=== PATIENT | male | born 1970 | race Caucasian/White ===

== ENCOUNTER 2023-09-08 11:53 | Emergency (ER) | payer SELFPAY ==
[2023-09-08 11:54] VITALS: BP 135/99; PULSE 113; RESP 14; TEMP 36.6; O2SAT 98; BMI 26.7
== END 2023-09-08 13:08 | disposition left against medical advice (07) ==
DX: Z53.21 Procedure and treatment not carried out due to patient leaving prior to being seen by health care provider (principal)

== ENCOUNTER 2023-12-18 13:05 | Inpatient (IN) | payer BC, SELFPAY ==
[2023-12-18] VITALS (13 sets, daily range): BP systolic 104–141; BP diastolic 62–94; PULSE 61–76; RESP 16–20; TEMP 36.2–36.8; O2SAT 98–100; BMI 25.6; BMI 26.5
--- NOTE | 2023-12-18 07:35 | PCM.HP.BLA ---
History and Physical Date of Admission: 12/18/23 Date of Service: 12/10/23 MR#: [id number] Acct: [id number] Name: ODALYS DUMONT Rep #: [id number] : 1970 Provider: Dr. 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 Is patient in pain?: No Allergies oxycodone [From Percocet] Adverse Reaction (Verified 12/10/23 08:26) Nausea Medications amlodipine 5 mg tablet 5 mg PO DAILY 11/27/23 [History Confirmed 12/10/23] tramadol 50 mg tablet 50 mg PO Q6H PRN 11/27/23 [History Confirmed 12/10/23] acetaminophen 160 mg/5 mL oral liquid 160 mg PO Q8H PRN 12/03/23 [History Confirmed 12/10/23] amoxicillin 875 mg tablet mg PO 12/10/23 [History Confirmed 12/10/23] PFSH Medical History Dysphagia Elevated BP without diagnosis of hypertension Kidney stones Neck abscess 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 Patient had surgery November 13, 2023 for his tongue. Patient does have a PEG tube in place. Patient also has an abscess to the and will get that pulled tomorrow. Patient was started on amoxicillin x 5 days on Saturday. Discussed with oncology okay to put the port in mid to late next week. ROS General General: Yes weight change; No appetite, fatigue, colon cancer or breast cancer HEENT HEENT: No difficulty swallowing, eye injury, eye surgery, swollen glands or hoarseness Endo Endocrine: No thyroid disease, diabetes mellitus, thyroid cancer, Hair loss, heat intolerance or cold intolerance Skin Skin: No rash or changing moles Musc Musculoskeletal: No back problems, arthritis, rheumatoid arthritis, gout or joint pain Cardio Cardiovascular: Yes high blood pressure; No murmur, pacemaker, heart disease, atrial fibrillation, heart attack, heart stent, palpitations, shortness of breat with exertion or chest pain Psych Psychiatric: No depression, anxiety or hearing voices Resp Respiratory: No shortness of breath, No sleep apnea, No cough, No COPD, No asthma, No emphysema and No wheezing Gastro Gastrointestinal: No abdominal pain, No nausea or vomiting, No diarrhea, No constipation, No blood in stool, No acid reflux, No hemorrhoids, No ulcers, No gallbladder problem and No black,tarry stools Chad Hematologic: No blood thinners, No blood disorders, No bleeding, No anemia and No blood clots Neuro Neurologic: No numbness and No tingling Exam Const General: cooperative, healthy appearing and comfortable Neck Other: Well-healed left neck incision, previous trach site well-healed Chest Other: Bilateral upper chest normal to palpation Resp Effort & Inspection: normal respiratory effort Cardio Rate: regular rate GI Palpation: soft Other: PEG tube in place Skin General: no rashes or lesions noted Neuro General: patient alert, patient awake and patient oriented x3 Extrem Other: Well-healed left forearm incision Psych Affect: normal affect Assessment and Plan Assessment and Plan (1) Encounter for insertion of venous access port: Status: Acute (2) Cancer of anterior two-thirds of tongue, dorsal surface: Status: Acute Comment: 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 Discussed adjuvant chemotherapy and Radiation to decrease recurrence, risks, benefits and side effects. Pt agreed to proceed. Plan Will plan for mid to late next week so patient has time to have his tooth pulled as well as complete his antibiotics to decrease any chance of infection of the port. I have discussed above with the patient- Port-a-Cath placement. Right IJ possible left Patient has been counseled as to the risks/benefits of the procedure. I have explained the risks of the surgery, including but not limited to: infection, bleeding, injury to any blood vessels/nerves, injury to lungs (such as pneumothorax or hemothorax and need for chest tube), not having any access, nonfunctioning of port due to thrombosis, infection of port, etc. the patient understands and agrees to proceed. I have answered all the patient's questions to the patient?s satisfaction and the patient has no further questions. Rashida Hunter M.D. Pager: [phone] [facility] [address] [place] [address], [address] [place] [address] Office: [phone] Coding Level of Care Code Off vis,new,level 3 Diagnoses Encounter for insertion of venous access port Z45.2 Cancer of anterior two-thirds of tongue, dorsal surface C02.0 12/10/23 1007 <Electronically signed by Rashida Hunter MD> Date Rashida Hunter MD
[2023-12-18] MEDS: Lactated Ringers 1,000 ML 15 ML IV (08:08)
[2023-12-18] MEDS: Cefazolin 2 GM in 0.9% Normal Saline (100mL Bag) 100 ML IV (09:55)
[2023-12-18] MEDS: Lidocaine 1% /Epi 1:100 (50ml) 50 ML VIAL (10:00)
[2023-12-18] MEDS: Bupivacaine Mpf 0.5% 30 ML VIAL (10:00)
--- NOTE | 2023-12-18 10:25 | PCM.OPRPT ---
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 Placement of right IJ Port-A-Cath 2. Use of ultrasound 3. Use of fluoroscopy Surgeon: Rashida Hunter Type of Anesthesia: Local MAC Anesthesiologist: Dima No Special Medications: Ancef 2 g IV x 1 Specimen's removed: None Estimated Blood Loss (mL): < 10 cc Description of Procedure: After informed consent was given, the patient was brought to the operating room and placed in the supine position. Appropriate time out protocol was followed. Patient was then given IV conscious sedation for anesthesia. The patient's right upper chest and neck were then prepped with a surgical skin preparation and sterile surgical drapes were placed. After proper landmarks were ascertained, the skin at the upper right chest area was then infiltrated with 1:1 mixture of 1% lidocaine with epinephrine and 0.5% marcaine. A needle trocar was then inserted into the right internal jugular vein with ultrasound guidance-multiple vessels were viewed with u/s and the right IJ was chosen-- and there was good aspiration of venous blood. A wire was then threaded into the needle trocar and this was visualized under fluoroscopy to ensure that the wire was in the superior vena cava. Once this was done, then the needle trocar was removed. A small skin johnna was made with an 11 blade knife at the wire entrance site. The dilator with the introducer sheath attached was then placed over the wire into the right internal jugular vein via the Seldinger technique and this was visualized under fluoroscopy. The dilator and sheath were in proper position as visualized by fluoroscopy. A subcutaneous pocket was then created caudad to the catheter insertion site. A transverse skin incision was made after the skin and subcutaneous tissues were infiltrated with local anesthetic. Blunt dissection was then used to create a space large enough for placement of the subcutaneous port. The catheter was then tunneled into the subcutaneous pocket. The wire and dilator were then removed. The catheter was then threaded into the introducer sheath and was positioned with its tip at the junction of the superior vena cava and the right atrium as visualized under fluoroscopy. The excess catheter was transected. The catheter was then attached to the subcutaneous port using manufacturers guidelines. The catheter was flushed with a heparin saline mixture prior to placement. Hemostasis was carefully controlled with electrocautery. The port was sutured to the subcutaneous fascia using 2-0 Vicryl suture at two sites. The port was then placed in the subcutaneous pocket. The incision were reapproximated with interrupted subdermal 3-0 vicryl sutures. The skin was reapproximated with 3-0 nylon suture in a interrupted fashion. Steristrips were used for reinforcement of the skin closure at IJ insertion site and a sterile opsite dressings were applied. The patient tolerated the procedure well. Grafts/Implants Used: Bard PowerPort isp M.R.I. 6Fr Lot [id number] [id number] Complications none
--- NOTE | 2023-12-18 10:27 | DCINST_ITS ---
Discharge Instructions Procedure Port-A-Cath Diet Discharge Diet: Light diet - advance as tolerated Activity May shower in (days): 5 (Keep port site clean and dry x5 days. Neck incision okay to get wet after 1 day. Okay to lower shower and upper sponge bath. OR okay to taper off port site with a Ziploc bag to shower) Lifting Restrictions: No lifting > 15 pounds for 3 days with the arm on the side of the port Dressing / Incision Call your doctor if your incision/area has: Continuous Slow Oozing, Sudden Increased Bleeding, Increased Pain/ Swelling, Increased Redness, Foul Smelling Discharge and Swelling at the incision site Call your doctor if you observe: Fever of 101 or Higher Change Dressing in: 2 days (2-3 days- port site; ok to remove neck opsite in 1 day) Follow Up Care Please Follow Up With: Rashida Hunter MD When: In 10 days for permanent suture removal?call office for appointment Test Results: Test results from this visit will be discussed in further detail at your follow- up appointment, if applicable. Discharge Plan Admission Attending Provider: Rashida Hunter Primary Care Provider: Lata Bennett Discharge Orders/Prescriptions Prescriptions: Continued amlodipine 5 mg tablet 5 mg PO DAILY tramadol 50 mg tablet 50 mg PO Q6H PRN (Reason: pain) acetaminophen 160 mg/5 mL liquid 160 mg PO Q8H PRN (Reason: pain) lidocaine-prilocaine 2.5-2.5 % cream 1 applic topical ONCE PRN (Reason: port access) 30 Days Qty: 30 2RF dexamethasone 4 mg tablet 8 mg PO .COMPLEX Qty: 40 0RF Rx Instructions: 8 mg orally daily on days 2-4 of chemotherapy cycle ONLY ondansetron 8 mg tablet,disintegrating 8 mg PO Q8H PRN (Reason: nausea and vomiting) Qty: 30 2RF prochlorperazine maleate 10 mg tablet 10 mg PO Q6H PRN (Reason: nausea and vomiting) Qty: 30 2RF amoxicillin 875 mg tablet 875 mg PO BID Patient Comments: take 1 tablet by mouth twice a day Referrals / Follow Up: Lata Bennett MD [Primary Care Provider] - Disposition Disposition (needs filled in before D/C Order can be placed): Home, Self Care
--- NOTE | 2023-12-18 10:40 | RAD_ITS ---
INDICATION: port -- pacu EXAMINATION/TECHNIQUE: X-RAY - XR Chest 1 View COMPARISON: No relevant prior comparison study available FINDINGS: LINES/DEVICES: Right-sided Port-A-Cath with its tip in the distal superior vena cava. LUNGS: No consolidation, edema or effusion. No pneumothorax. MEDIASTINUM AND CARDIOVASCULAR STRUCTURES: Cardiac silhouette not enlarged. Central airways and mediastinal contour are unremarkable. BONES AND SOFT TISSUES: Unremarkable. RAD/Chest 1 View (Portable) IMPRESSION: No radiographic evidence of acute cardiopulmonary disease. Electronically Signed: Sonu Salcedo MD at 11:01 EST ,
--- NOTE | 2023-12-18 11:55 | RAD_ITS ---
INDICATION: port/right PTX -- pacu EXAMINATION/TECHNIQUE: X-RAY - XR Chest 1 View COMPARISON: Prior study dated: 12/18/2023, 10:36 AM FINDINGS: LINES/DEVICES: Right-sided Port-A-Cath in stable position. LUNGS: Right apical pneumothorax which in retrospect appears to be increased in size since previous exam appears to measure about 15%. MEDIASTINUM AND CARDIOVASCULAR STRUCTURES: Cardiac silhouette not enlarged. Central airways and mediastinal contour are unremarkable. BONES AND SOFT TISSUES: Unremarkable. RAD/Chest 1 View (Portable) IMPRESSION: Right apical pneumothorax slightly larger than the previous exam. Electronically Signed: Sonu Salcedo MD at 12:09 EST ,
[2023-12-18] MEDS: Morphine 2 MG/ML Syringe IV ×2 (12:59→22:02)
--- NOTE | 2023-12-18 13:25 | RAD_ITS ---
INDICATION: chest tube placement #1 EXAMINATION/TECHNIQUE: X-RAY - XR Chest 1 View COMPARISON: Previous of the same date done earlier. FINDINGS: LINES/DEVICES: Right-sided Port-A-Cath in stable position. New right chest tube in the right lower chest. LUNGS: Right apical pneumothorax decreased since previous exam. Mild atelectatic changes in the right lower lung. No evidence of pleural effusions. MEDIASTINUM AND CARDIOVASCULAR STRUCTURES: Cardiac silhouette not enlarged. Central airways and mediastinal contour are unremarkable. BONES AND SOFT TISSUES: Unremarkable. RAD/Chest 1 View (Portable) IMPRESSION: Right chest tube in the right lower chest. Decreased right apical pneumothorax. Electronically Signed: Sonu Salcedo MD at 13:56 EST ,
--- NOTE | 2023-12-18 13:30 | RAD_ITS ---
INDICATION: chest tube placement #2 EXAMINATION/TECHNIQUE: X-RAY - XR Chest 1 View COMPARISON: Previous of the same date done earlier FINDINGS: LINES/DEVICES: Right-sided Port-A-Cath in stable position. New right chest tube with the tip in the right lower chest is suggested more cephalad. The previously inserted chest tube has been removed. LUNGS: Right apical pneumothorax unchanged or slightly larger than the previous exam. MEDIASTINUM AND CARDIOVASCULAR STRUCTURES: Cardiac silhouette not enlarged. Central airways and mediastinal contour are unremarkable. BONES AND SOFT TISSUES: Unremarkable. RAD/Chest 1 View (Portable) IMPRESSION: New right chest tube. Right apical pneumothorax unchanged or slightly larger than the previous exam. Electronically Signed: Sonu Salcedo MD at 13:58 EST ,
--- NOTE | 2023-12-18 13:35 | RAD_ITS ---
INDICATION: CHEST TUBE PLACEMENT #3 EXAMINATION/TECHNIQUE: X-RAY - XR Chest 1 View COMPARISON: Previous of the same date done earlier. FINDINGS: LINES/DEVICES: Right-sided chest tube is now in the lateral aspect of the right midchest appears to be new since previous exam. Right-sided Port-A-Cath in stable position. LUNGS: Markedly decreased and almost resolved right apical pneumothorax. MEDIASTINUM AND CARDIOVASCULAR STRUCTURES: Cardiac silhouette not enlarged. Central airways and mediastinal contour are unremarkable. BONES AND SOFT TISSUES: Unremarkable. RAD/Chest 1 View (Portable) IMPRESSION: Right chest tube in place as described above. Markedly decreased and almost resolved right apical pneumothorax. Electronically Signed: Sonu Salcedo MD at 13:59 EST ,
--- NOTE | 2023-12-18 13:37 | PCM.OPRPT ---
Report of Operation Date of Procedure: 12/18/23 Pre-Operative Diagnosis: right PTX s/p port placement Post-Operative Diagnosis: same Surgery/Procedure Performed:: placement of right percutaneous chest tube Surgeon: Rashida Hunter Type of Anesthesia: Local Estimated Blood Loss (mL): < 10 cc Description of Procedure: Indications: 53-year-old male status post placement of right IJ Port-A-Cath postop chest x-ray showed a right pneumothorax. Discussed the procedure of percutaneous right chest tube with the patient. All questions were answered and consent obtained. Description of procedure. Patient was supine in the bed with his right arm overhead. The right anterior axillary line was prepped draped usual sterile fashion with chlorhexidine. Insertion site was planned at inferior mammary fold. This area was numbed with lidocaine 1% a total of 12 cc. A pneumo dart 8 Luxembourger chest tube kit was used. The catheter needle replaced above the rib air was aspirated and the catheter was advanced over the needle. This was secured with the 3-0 silk suture and attached to a Pleur-evac did have some bubbles in the Pleur-evac chamber. Checked chest x-ray which showed the catheter was more horizontal and there is still pneumothorax. Additional pneumo dart kit 8 Luxembourger chest tube was obtained and attempted to place through the same entry site however again tube was more horizontal still with a pneumothorax. A Glidewire was used to help to direct superiorly visualized with x-rays. Once the guidewire was superior the catheter was slid over the top and placed towards the apex. Pneumothorax appeared to be resolved on final chest x-ray. Patient was put on -22 the Pleur-evac. Patient tolerated procedure well. Complications none
[2023-12-18] MEDS: traMADol 50 MG Tablet PO (17:04)
[2023-12-18] MEDS: Ensure Plus High Protein 120 ML LIQUID PO (21:58)
[2023-12-19] VITALS (10 sets, daily range): BP systolic 111–131; BP diastolic 73–91; PULSE 65–83; RESP 16; TEMP 36.4–36.8; O2SAT 96–99
[2023-12-19] MEDS: traMADol 50 MG Tablet PO ×3 (02:08→18:16)
--- NOTE | 2023-12-19 05:55 | RAD_ITS ---
INDICATION: right ptx- s/p CT -- portable EXAMINATION: Frontal view of the chest COMPARISON: Chest x-ray December 18, 2023. FINDINGS: Frontal view of the chest was obtained. The right pneumothorax has increased in size measuring 2.4 cm in width, previously 1.4 cm. The right chest tube is unchanged in position with the tip projecting over the lateral aspect of the right upper mid hemithorax. The tip of the Port-A-Cath projects over the right atrium as before. The cardiac silhouette is not enlarged. No confluent airspace disease. RAD/Chest 1 View IMPRESSION: The right pneumothorax has increased in size since the previous day. Chest tube is unchanged in position. Electronically Signed: Bigg Hernandez MD at 5:51 EST ,
--- NOTE | 2023-12-19 07:52 | RAD_ITS ---
ACR Level 3 findings have been noted. An addendum which confirms receipt of the report will follow. HISTORY: Right pneumothorax. TECHNIQUE: XR Chest 1 View. COMPARISON: 05:13. FINDINGS: LINES/TUBES: Small caliber right chest tube slightly repositioned. Right chest wall port again seen. CARDIOMEDIASTINAL BORDERS: Stable. LUNGS: Mild linear atelectasis in the right mid to lower lung. PLEURA: 3.7 cm thick right apical pneumothorax with a mild basilar component. Previously measured 2.8 cm. RAD/Chest 1 View (Portable) IMPRESSION: Increased size of right pneumothorax. Electronically Signed: Violet Hays MD at 8:36 EST ,
--- NOTE | 2023-12-19 08:06 | PCM.PN.SRG ---
Subjective Subjective Chest x-ray still has a pneumothorax with tube in place Objective Data Objective Data Vital Signs: Vital Signs Temp Pulse Resp BP Pulse Ox O2 Del Method O2 Flow Rate 97.7 F L 65 16 122/86 H 97 Nasal Cannula 2 12/19/23 04:07 12/19/23 04:07 12/19/23 04:07 12/19/23 04:07 12/19/23 04:07 12/19/23 04:10 12/19/23 04:07 Oxygen Flow Rate (L/min) 2 Oxygen Delivery Method Nasal Cannula Weight: 184 lb 15.485 oz Body Mass Index (BMI) 26.5 Intake & Output: Intake and Output for Last 24 Hours 12/17/23 12/18/23 12/19/23 23:59 23:59 23:59 Intake Total 770 / 770 Output Total 950 / 1800 1150 / 1150 Balance -180 / -1030 -1150 / -1150 Radiography Diagnostic Testing: Radiology Impression Chest X-Ray 12/18/23 10:40 IMPRESSION: No radiographic evidence of acute cardiopulmonary disease. Electronically Signed: Sonu Salcedo MD at 11:01 EST , Chest X-Ray 12/18/23 11:55 IMPRESSION: Right apical pneumothorax slightly larger than the previous exam. Electronically Signed: Sonu Salcedo MD at 12:09 EST , Chest X-Ray 12/18/23 13:25 IMPRESSION: Right chest tube in the right lower chest. Decreased right apical pneumothorax. Electronically Signed: Sonu Salcedo MD at 13:56 EST , Chest X-Ray 12/18/23 13:30 IMPRESSION: New right chest tube. Right apical pneumothorax unchanged or slightly larger than the previous exam. Electronically Signed: Sonu Salcedo MD at 13:58 EST , Chest X-Ray 12/18/23 13:35 IMPRESSION: Right chest tube in place as described above. Markedly decreased and almost resolved right apical pneumothorax. Electronically Signed: Sonu Salcedo MD at 13:59 EST , Chest X-Ray 12/19/23 05:55 IMPRESSION: The right pneumothorax has increased in size since the previous day. Chest tube is unchanged in position. Electronically Signed: Bigg Hernandez MD at 5:51 EST , Physical Exam Const oriented x3 and no apparent distress Resp normal respiratory effort Cardio regular rate GI soft to palpation and non-tender Assessment & Plan Assessment/Plan (1) Pneumothorax, right: (2) Encounter for insertion of venous access port: (3) Post-operative complication: PLAN: Plan Will recheck CXR-- Pt still has airleak may need larger CT unsure why initially no bubbles until placed on -40 suction with tube in good position. Reviewed CXR w pt and discussed above. Chest x-ray still has a decent pneumo even after messing with the smaller tube. Will place larger chest tube. Patient had no questions this time.
[2023-12-19] MEDS: Morphine 4 MG/ML Syringe IV (08:50)
--- NOTE | 2023-12-19 09:23 | RAD_ITS ---
HISTORY: POST CHEST TUBE. TECHNIQUE: XR Chest 1 View. COMPARISON: Prior day. FINDINGS: LINES/TUBES: Small caliber right lateral chest tube removed. Large bore chest tube placed more medially with mild chest wall emphysema now seen. Right chest wall port with catheter tip at the level of the superior cavoatrial junction. CARDIOMEDIASTINAL BORDERS: Stable. LUNGS: Very mild linear atelectasis of the right mid to lower lung. PLEURA: Right apical pneumothorax measures 8 mm in thickness. RAD/Chest 1 View IMPRESSION: Very mild right apical pneumothorax, decreased in size status post chest tube replacement. Electronically Signed: Violet Hays MD at 9:38 EST ,
--- NOTE | 2023-12-19 09:35 | OP.PCM_ITS ---
Report of Operation Date of Procedure: 12/19/23 Pre-Operative Diagnosis: Right pneumothorax, status post port placement Post-Operative Diagnosis: Same Surgery/Procedure Performed:: Placement of 20 Panamanian right chest tube under fluoroscopy Surgeon: Rashida Hunter Type of Anesthesia: Local and Supplemental Special Medications: Morphine 2 mg IV x 1 Estimated Blood Loss (mL): < 10 cc Description of Procedure: Patient was supine on the fluoroscopy table with the right hand overhead. Areas prepped draped usual sterile fashion with chlorhexidine. The previous 8 Panamanian chest tube was removed. Local anesthesia of 1% lidocaine was used and infiltrated at the site and planned track total of 15 cc. 15 blade scalpel was used to make the incision. Tonsil was used to make the tract just over the rib. The 20 Panamanian chest tube was placed between the rib space and directed superiorly. Fluoroscopy aided in getting the tip at the apex. This was sutured and placed with 0 silk suture and there is also a vertical horizontal mattress suture at the exit site placed. Vaseline gauze was placed. This was hooked to the Pleur-evac and we did get a leak in the container. X-ray did show good placement of tube with lung expanded --patient does have intermittent airleak on -20 to a Pleur-evac.. Patient tolerated procedure well was taken back to his room in stable condition. Complications none
[2023-12-19] MEDS: Ensure Plus High Protein 120 ML LIQUID PO (09:51)
[2023-12-19] MEDS: amLODIPine 5 MG Tablet PO (09:51)
--- NOTE | 2023-12-19 12:50 | CASEMGMT ---
NAMITA DAVID Assessment Face to Face with patient for initial transition planning/care coordination assessment. NAMITA DAVID introduced self and role at [facility], pt voices understanding. Pt is A&Ox4 and is resting comfortably in bed and is calm. Care providers, pharmacy, and demographics verified. Admitting dx: Rt PTX S/P PORT PCP: Lata Bennett Specialists: Dr. Judah DOUGLAS Preferred Pharmacy: [facility] Insurance: ANTHEM Prescription Benefit: Yes LNOK: Grace Minor (W) Living Arrangements: Pt lives with his and 24 y/o son in a single story home with 3 steps to enter with a HR and no issues entering. ADLs/IADLs: Ind Transportation: Pt drives, pt drives and will be the pt transportation home DME: [employer] at home but does not use. [employer]. Pt denies all other DME uses or needs. HHC/SNF: Denies SNF history. Pt states that he is active with Palliative care but could not recall the name of the agency. Pt states that he is scheduled to be seen tomorrow at noon by Palliative but states that he will most likely not be able to be seen at that time d/t being at [facility]. Pt?s goal: Home Plan: Pt 6-Click is 20. Pt denies OP therapy or HHC needs at this time. Pt states that he wishes to DC home once MR and resume Palliative care. Pt denies further needs at this time. CM to follow for safe DC home. Nathen Heard RN, CM
[2023-12-19] MEDS: Morphine 2 MG/ML Syringe IV (15:48)
[2023-12-19] MEDS: Pivot 1.5 Cal 1,000 ML BOTTLE 237 ML GT ×2 (18:17→21:22)
[2023-12-20] VITALS (10 sets, daily range): BP systolic 119–136; BP diastolic 79–91; PULSE 79–98; RESP 18; TEMP 36.8–37.2; O2SAT 96–98
[2023-12-20] MEDS: traMADol 50 MG Tablet PO ×2 (03:50→07:39)
--- NOTE | 2023-12-20 06:44 | RAD_ITS ---
STUDY: X-RAY CHEST REASON FOR EXAM: Male, 53 years old patient presents for evaluation of chest tube. TECHNIQUE: Single AP portable view of the chest. COMPARISON: December 19, 2023. FINDINGS: Right-sided Mediport catheter is present in the tip of the catheter is in the right atrium. Right-sided thoracostomy tube is present with the tip in the right lung apex. The lungs are clear. There is a large right-sided pneumothorax new since the previous study. Normal size heart. Normal mediastinum and sina. Normal visualized pulmonary arteries. Normal visualized aortic arch and descending thoracic aorta. Normal visualized thoracic spine. Normal visualized ribs, clavicles, and shoulders. There is no demonstrated abnormality of the visualized soft tissue structures of the upper abdomen. RAD/Chest 1 View (Portable) IMPRESSION: New right-sided pneumothorax involves at least 50% of the lung. Electronically Signed: Maggie Heard MD at 7:42 EST ,
[2023-12-20] MEDS: Morphine 2 MG/ML Syringe IV ×2 (07:18→07:47)
--- NOTE | 2023-12-20 07:25 | RAD_ITS ---
INDICATION: chest tube -- portable EXAMINATION/TECHNIQUE: X-RAY - XR Chest 1 View COMPARISON: December 20, 2023 at 6:38 AM FINDINGS: LINES/DEVICES: There is a right chest tube in place with its tip projecting over the medial right upper/midline. There is a right-sided central venous catheter in place tip within the expected region of the cavoatrial junction. LUNGS: There is significant interval decrease in size of the right pneumothorax. There is a residual tiny right apical pneumothorax. MEDIASTINUM AND CARDIOVASCULAR STRUCTURES: Cardiac silhouette not enlarged. Central airways and mediastinal contour are unremarkable. BONES AND SOFT TISSUES: Unremarkable. RAD/Chest 1 View (Portable) IMPRESSION: Significant interval decrease in size of right pneumothorax with a residual tiny apical pneumothorax. Electronically Signed: Noa Balbuena MD at 8:13 EST ,
--- NOTE | 2023-12-20 07:27 | PN.SURG_ITS ---
Subjective Subjective Patient section x-ray shows a large pneumothorax. When evaluated tube it was kinked outside the body-- this was unkinked and a large amount of air came out patient also does have a small leak. Tube was secured to prevent kinking. Objective Data Objective Data Vital Signs: Vital Signs Temp Pulse Resp BP Pulse Ox O2 Del Method O2 Flow Rate 98.4 F 79 18 128/90 H 97 Nasal Cannula 2 12/20/23 03:51 12/20/23 03:51 12/20/23 03:51 12/20/23 03:51 12/20/23 03:51 12/20/23 03:51 12/20/23 03:51 Oxygen Flow Rate (L/min) 2 Oxygen Delivery Method Nasal Cannula Weight: 184 lb 15.485 oz Body Mass Index (BMI) 26.5 Intake & Output: Intake and Output for Last 24 Hours 12/18/23 12/19/23 12/20/23 23:59 23:59 23:59 Intake Total 770 / 770 1166.75 / 1166.75 Output Total 950 / 1800 2385 / 2385 151 / 151 Balance -180 / -1030 -1218.25 / -1218.25 -151 / -151 Radiography Diagnostic Testing: Radiology Impression Chest X-Ray 12/19/23 07:52 IMPRESSION: Increased size of right pneumothorax. Electronically Signed: Violet Hays MD at 8:36 EST , ADDENDUM: 12/19/23 0847 IMPRESSION: Increased size of right pneumothorax. N.B. : Viviana Miller RN, confirmed on 12/19/2023 08:40:12 (ET) that the healthcare facility has received the radiology report. Electronically Signed: Violet Hays MD at 8:36 EST , Chest X-Ray 12/19/23 09:23 IMPRESSION: Very mild right apical pneumothorax, decreased in size status post chest tube replacement. Electronically Signed: Violet Hays MD at 9:38 EST , Physical Exam Narrative Right chest tube in place initially was kinked the 20 Romanian chest tube this was unkinked and secured with tape. Const oriented x3 and no apparent distress Resp normal respiratory effort Cardio regular rate GI soft to palpation and non-tender Assessment & Plan Assessment/Plan (1) Pneumothorax, right: (2) Encounter for insertion of venous access port: (3) Post-operative complication: PLAN: Plan Will recheck CXR--as this morning's x-ray showed a large pneumo as the CT tube was kinked outside the body. Tube was resecured to prevent any rekinking. Patient does have a leak present intermittently. Rashida Hunter M.D. Pager: [phone] [facility] [place] [facility] [address] [place] [address], [address] [place] [address] Office: [phone]
[2023-12-20] MEDS: HYDROmorphone 0.5 MG/0.5 ML SYRINGE IV (09:52)
[2023-12-20] MEDS: amLODIPine 5 MG Tablet PO (11:03)
--- NOTE | 2023-12-20 11:09 | CASEMGMT ---
Social Work As per admitting RN, pt does not have LW/POA, additional information provided. FANNY Frazier
[2023-12-20] MEDS: Ketorolac 15 MG/ML Vial IV ×2 (11:37→18:03)
[2023-12-20] MEDS: oxyCODONE 5 MG Tablet PO (14:39)
[2023-12-21] VITALS (8 sets, daily range): BP systolic 124–132; BP diastolic 47–90; PULSE 97–109; RESP 16–18; TEMP 36.3–37.1; O2SAT 94–96
[2023-12-21] MEDS: Ketorolac 15 MG/ML Vial IV ×4 (02:56→22:21)
--- NOTE | 2023-12-21 05:55 | RAD_ITS ---
INDICATION: chest tube -- portable EXAMINATION/TECHNIQUE: X-RAY - XR Chest 1 View COMPARISON: 12/20/2023 at 7:29 AM. FINDINGS: LINES/DEVICES: Right apical chest tube is stable. Stable right chest port. LUNGS: Small right apical pneumothorax, increased in size as compared to the prior exam. No evidence of a pleural effusion. Left basilar atelectasis versus infiltrate. MEDIASTINUM AND CARDIOVASCULAR STRUCTURES: Cardiac silhouette is normal in size and contour. Mediastinum is unremarkable. BONES AND SOFT TISSUES: No acute abnormality. RAD/Chest 1 View (Portable) IMPRESSION: 1. Small right apical pneumothorax, increased in size as compared to 12/20/2023 at 7:29 AM. 2. Left basilar atelectasis versus infiltrate. Electronically Signed: Burton Smith DO at 7:09 EST ,
--- NOTE | 2023-12-21 08:00 | RAD_ITS ---
INDICATION: right chest tube -- portable 2 view EXAMINATION/TECHNIQUE: X-RAY - XR Chest 2 Views COMPARISON: Prior study dated: 12/21/2023 FINDINGS: LINES/DEVICES: Right-sided Port-A-Cath and right chest tube in stable position. LUNGS: Small right apical pneumothorax slightly increased in size since previous exam. Mild atelectatic changes in the lower lungs. No evidence of pleural effusions. MEDIASTINUM AND CARDIOVASCULAR STRUCTURES: Cardiac silhouette not enlarged. Central airways and mediastinal contour are unremarkable. BONES AND SOFT TISSUES: Unremarkable. RAD/Chest PA and Lateral IMPRESSION: Slightly increased right apical pneumothorax. Electronically Signed: Sonu Salcedo MD at 8:33 EST ,
[2023-12-21] MEDS: oxyCODONE 5 MG Tablet PO ×4 (08:19→20:16)
[2023-12-21] MEDS: amLODIPine 5 MG Tablet PO (08:20)
[2023-12-21] MEDS: 0.9% Saline Lock 10 ML Syringe IV ×4 (08:20→22:20)
[2023-12-21] MEDS: Morphine 2 MG/ML Syringe IV (08:30)
--- NOTE | 2023-12-21 10:00 | RAD_ITS ---
INDICATION: CHEST TUBE PLACEMENT EXAMINATION/TECHNIQUE: X-RAY - XR Chest 2 Views COMPARISON: Previous of the same date done earlier. FINDINGS: LINES/DEVICES: Right-sided chest tube has been adjusted with the tip now in the right upper chest. Right-sided Port-A-Cath in stable position. LUNGS: Right apical pneumothorax almost resolved. Right subcutaneous emphysema. No evidence of pleural effusions. MEDIASTINUM AND CARDIOVASCULAR STRUCTURES: Cardiac silhouette not enlarged. Central airways and mediastinal contour are unremarkable. BONES AND SOFT TISSUES: Unremarkable. RAD/Chest PA and Lateral IMPRESSION: 1. Status post adjustment of right chest tube. 2. Almost resolved right apical pneumothorax. Electronically Signed: Sonu Salcedo MD at 11:53 EST ,
--- NOTE | 2023-12-21 10:08 | PCM.PN.SRG ---
Subjective Subjective Patient still pneumothorax on chest x-ray this morning. Tube is not although at the apex still has occasional air leak. Did get AP and lateral after changing up to -40 no improvement in the pneumo chest tube appears to be anterior. Objective Data Objective Data Vital Signs: Vital Signs Temp Pulse Resp BP Pulse Ox O2 Del Method O2 Flow Rate 97.7 F L 97 16 128/90 H 95 Nasal Cannula 2 12/21/23 08:08 12/21/23 08:08 12/21/23 08:08 12/21/23 08:08 12/21/23 08:08 12/21/23 08:20 12/21/23 08:20 Oxygen Flow Rate (L/min) 2 Oxygen Delivery Method Nasal Cannula Weight: 184 lb 15.485 oz Body Mass Index (BMI) 26.5 Intake & Output: Intake and Output for Last 24 Hours 12/19/23 12/20/23 12/21/23 23:59 23:59 23:59 Intake Total 1166.75 / 1166.75 1250 / 1250 Output Total 2385 / 2385 1480 / 1480 807 / 807 Balance -1218.25 / -1218.25 -230 / -230 -807 / -807 Radiography Diagnostic Testing: Radiology Impression Chest X-Ray 12/21/23 05:55 IMPRESSION: 1. Small right apical pneumothorax, increased in size as compared to 12/20/2023 at 7:29 AM. 2. Left basilar atelectasis versus infiltrate. Electronically Signed: Burton Smith DO at 7:09 EST , Chest X-Ray 12/21/23 08:00 IMPRESSION: Slightly increased right apical pneumothorax. Electronically Signed: Sonu Salcedo MD at 8:33 EST , Physical Exam Narrative Right chest tube in place, positive leak in canister Const oriented x3 and no apparent distress Resp normal respiratory effort Cardio regular rate GI soft to palpation and non-tender Assessment & Plan Assessment/Plan (1) Pneumothorax, right: (2) Encounter for insertion of venous access port: (3) Post-operative complication: PLAN: Plan Patient's x-ray still has pneumothorax after trying to turn to -40 no change we will plan to replace with a larger tube and fluoroscopy and plan to get placed at the apex. Discussed with patient and he was agreeable to plan. Rashida Hunter M.D. Pager: [phone] [facility] [address] [place] [address], [address] [place] [address] Office: [phone]
--- NOTE | 2023-12-21 10:10 | OP.PCM_ITS ---
Report of Operation Date of Procedure: 12/21/23 Pre-Operative Diagnosis: Right pneumothorax status post port Post-Operative Diagnosis: Same Surgery/Procedure Performed:: Exchange of right 20 [place] chest tube for 28 [place] chest tube Surgeon: Rashida Hunter Type of Anesthesia: Local and Supplemental Special Medications: 2 mg morphine IV x 1 Description of Procedure: Informed consent was obtained. Patient was supine on the fluoroscopy table. Site was prepped draped usual sterile fashion with Betadine. The previous 20 [place] chest tube was removed. Local anesthesia of 1% lidocaine total of 30 cc was infiltrated in the subcutaneous and above and below the planned entry site of the rib. 28 [place] chest tube was directed posterior and superior however under fluoroscopy this did not easily go even though there is space between the lung and the chest wall. After more adjustment of the the chest tube I was able to get the chest tube to go easily to the apex on the lateral checks x-ray-- chest tube was anteriorly to get to the apex. Chest tube was secured in place with 0 silk suture in a vertical horizontal mattress suture was also placed at the incision. Vaseline gauze placed around the tube. Drain sponges placed around the tube and this was secured with tape. This was hooked to the Pleur- evac which did have continuous bubbles initially does still have a slow leak present. Repeat chest x-ray showed tube is at the apex no obvious pneumo seen. Patient tolerated procedure well. Complications none
[2023-12-21] MEDS: Pivot 1.5 Cal 1,000 ML BOTTLE 237 ML GT ×4 (10:15→22:07)
[2023-12-21] MEDS: Senna Tablet 1 TABLET PO (10:58)
[2023-12-22] VITALS (7 sets, daily range): BP systolic 124–135; BP diastolic 67–82; PULSE 84–94; RESP 16–18; TEMP 36.4–37.2; O2SAT 94–98
--- NOTE | 2023-12-22 07:25 | RAD_ITS ---
HISTORY: chest tube. TECHNIQUE: XR Chest 1 View. COMPARISON: Prior day. FINDINGS: LINES/TUBES: Right apical chest tube and right chest wall port again seen. CARDIOMEDIASTINAL BORDERS: Stable. LUNGS: Improved aeration of the right upper and and bilateral lower lungs with mildly decreased atelectasis. PLEURA: Trace right apical pneumothorax further decrease in size. Decreased chest wall subcutaneous emphysema. RAD/Chest 1 View (Portable) IMPRESSION: Decreased trace right apical pneumothorax. Improved aeration of the lungs. Electronically Signed: Violet Hays MD at 8:05 EDT ,
[2023-12-22] MEDS: amLODIPine 5 MG Tablet PO (08:34)
[2023-12-22] MEDS: Pivot 1.5 Cal 1,000 ML BOTTLE 237 ML GT ×4 (08:34→22:44)
--- NOTE | 2023-12-22 08:53 | PCM.PN.SRG ---
Subjective Subjective Patient's chest x-ray shows lungs are expanded with chest tube at the apex, patient has minimal leak?improved Objective Data Objective Data Vital Signs: Vital Signs Temp Pulse Resp BP Pulse Ox O2 Del Method O2 Flow Rate 98.7 F 92 16 134/81 H 97 Nasal Cannula 2 12/22/23 08:32 12/22/23 08:32 12/22/23 08:32 12/22/23 08:32 12/22/23 08:32 12/22/23 08:32 12/22/23 08:32 Oxygen Flow Rate (L/min) 2 Oxygen Delivery Method Nasal Cannula Weight: 184 lb 15.485 oz Body Mass Index (BMI) 26.5 Intake & Output: Intake and Output for Last 24 Hours 12/20/23 12/21/23 12/23/23 23:59 23:59 00:59 Intake Total 1250 / 1250 860 / 860 200 / 200 Output Total 1480 / 1480 1222 / 1222 217 / 217 Balance -230 / -230 -362 / -362 -17 / -17 Radiography Diagnostic Testing: Radiology Impression Chest X-Ray 12/21/23 08:00 IMPRESSION: Slightly increased right apical pneumothorax. Electronically Signed: Sonu Salcedo MD at 8:33 EST , Chest X-Ray 12/21/23 10:00 IMPRESSION: 1. Status post adjustment of right chest tube. 2. Almost resolved right apical pneumothorax. Electronically Signed: Sonu Salcedo MD at 11:53 EST , Chest X-Ray 12/22/23 07:25 IMPRESSION: Decreased trace right apical pneumothorax. Improved aeration of the lungs. Electronically Signed: Violet Hays MD at 8:05 EDT , Physical Exam Narrative Right chest tube in place, minimal leak improved Const oriented x3 and no apparent distress Resp normal respiratory effort Cardio regular rate GI soft to palpation and non-tender Assessment & Plan Assessment/Plan (1) Pneumothorax, right: (2) Encounter for insertion of venous access port: (3) Post-operative complication: PLAN: Plan Patient's chest x-ray shows lung still reexpanded tubes in good position. Leak has decreased we will continue to -20 suction today. If no evidence of leak tomorrow we will plan to go to waterseal. Rashida Hunter M.D. Pager: [phone] [facility] [address] [place] [address], [facility], [address] [place] [address] Office: [phone]
[2023-12-22] MEDS: Ketorolac 15 MG/ML Vial IV (08:57)
[2023-12-22] MEDS: 0.9% Saline Lock 10 ML Syringe IV (08:58)
[2023-12-22] MEDS: Ibuprofen 400 MG Tablet PO ×2 (13:11→18:35)
[2023-12-22] MEDS: oxyCODONE 5 MG Tablet PO ×2 (14:56→19:44)
[2023-12-23 04:32] VITALS: BP 130/89; PULSE 89; RESP 18; TEMP 36.4; O2SAT 98
--- NOTE | 2023-12-23 05:45 | RAD_ITS ---
EXAM: XR CHEST, 1 VIEW CLINICAL INDICATION: chest tube -- portable TECHNIQUE: Frontal view of the chest. COMPARISON: 12/22/2023. FINDINGS: LUNGS AND PLEURAL SPACES: Unremarkable. No effusion. No significant pneumothorax. HEART: Unremarkable. Cardiac silhouette not enlarged. MEDIASTINUM: Central airways and mediastinal contour are unremarkable. BONES/JOINTS: Unremarkable. No acute fracture. SOFT TISSUES: Unremarkable. TUBES, LINES AND DEVICES: No change the right-sided chest tube. No change right-sided central line. RAD/Chest 1 View (Portable) IMPRESSION: 1. No change the right-sided chest tube. 2. No significant pneumothorax. Electronically Signed: Asad Cordero MD at 6:18 EDT ,
[2023-12-23 07:57] VITALS: BP 114/70; PULSE 87; RESP 18; TEMP 37.1; O2SAT 95
[2023-12-23] MEDS: oxyCODONE 5 MG Tablet PO ×3 (08:04→21:18)
[2023-12-23] MEDS: amLODIPine 5 MG Tablet PO (08:04)
[2023-12-23] MEDS: Pivot 1.5 Cal 1,000 ML BOTTLE 237 ML GT ×4 (08:05→21:05)
--- NOTE | 2023-12-23 08:05 | PCM.PN.SRG ---
Subjective Subjective Patient is a 53 y/o M I am following for right pneumothorax. He denies shortness of breath and chest pressure. Objective Data Objective Data Vital Signs: Vital Signs Temp Pulse Resp BP Pulse Ox O2 Del Method O2 Flow Rate 98.8 F 87 18 114/70 95 Room Air 2 12/23/23 07:57 12/23/23 07:57 12/23/23 07:57 12/23/23 07:57 12/23/23 07:57 12/23/23 07:57 12/23/23 04:32 Oxygen Flow Rate (L/min) 2 Oxygen Delivery Method Room Air Weight: 184 lb 15.485 oz Body Mass Index (BMI) 26.5 Intake & Output: Intake and Output for Last 24 Hours 12/21/23 12/22/23 12/23/23 22:59 23:59 23:59 Intake Total 420 / 420 Output Total 808 / 808 Balance -388 / -388 Radiography Diagnostic Testing: Radiology Impression Chest X-Ray 12/22/23 07:25 IMPRESSION: Decreased trace right apical pneumothorax. Improved aeration of the lungs. Electronically Signed: Violet Hays MD at 8:05 EDT , Chest X-Ray 12/23/23 05:45 IMPRESSION: 1. No change the right-sided chest tube. 2. No significant pneumothorax. Electronically Signed: Asad Cordero MD at 6:18 EDT , Physical Exam Resp normal respiratory effort and clear to auscultation bilaterally Assessment & Plan Assessment/Plan (1) Post-operative complication: (2) Pneumothorax, right: PLAN: Plan I am following this patient in conjunction with Dr. Hunter. CXR this morning demonstrated no significant pneumothorax and no change right-sided chest tube Plan to place patient to water-seal. Recheck CXR later today around 2:00pm. We will continue to monitor this patient Charges/Coding Visit Charges Inpatient E&M: 30873 Subs Hosp L1 (post-op)
--- NOTE | 2023-12-23 08:09 | NURSING ---
CT to water seal at this time per MD.
[2023-12-23 08:26] VITALS: O2SAT 96
--- NOTE | 2023-12-23 11:36 | WOUNDNOTE ---
wound photo: left inner wrist/forearm
--- NOTE | 2023-12-23 13:55 | RAD_ITS ---
STUDY: X-RAY CHEST REASON FOR EXAM: Male, 53 years old. right pneumothorax -- PORTABLE TECHNIQUE: Single AP portable view of the chest. COMPARISON: December 23, 2023 at 5:44 AM FINDINGS: 1. Stable right upper lobe chest tube. No visualized pneumothorax. 2. Stable right chest port and catheter 3. Mild right lower lobe basilar atelectasis is present with trace pleural fluid. The remaining lung fuentes are clear. 4. Normal heart size 5. Stable mediastinum and osseous structures There is no demonstrated abnormality of the visualized soft tissue structures of the upper abdomen. RAD/Chest 1 View (Portable) IMPRESSION: Stable right upper lobe chest tube. No visualized pneumothorax. Electronically Signed: Baltazar Zhong MD at 15:09 EDT ,
[2023-12-23 14:36] VITALS: BP 138/67; PULSE 84; RESP 16; TEMP 36.8; O2SAT 97
[2023-12-23 21:15] VITALS: BP 124/91; PULSE 106; RESP 18; TEMP 36.9; O2SAT 98
[2023-12-24 03:15] VITALS: BP 118/83; PULSE 91; RESP 18; TEMP 36.4; O2SAT 95
[2023-12-24] MEDS: oxyCODONE 5 MG Tablet PO ×3 (03:37→15:04)
--- NOTE | 2023-12-24 05:55 | RAD_ITS ---
INDICATION: chest tube -- portable EXAMINATION/TECHNIQUE: X-RAY - XR Chest 1 View COMPARISON: Prior study dated: 12/23/2023 FINDINGS: LINES/DEVICES: Right-sided chest tube extends to the apex. CT compatible right chest wall port terminates near the cavoatrial junction. LUNGS: Lung volumes are low with mild elevation of the right hemidiaphragm. Streaky basilar opacities remain. No pneumothorax seen at this time. No significant pleural effusion. MEDIASTINUM AND CARDIOVASCULAR STRUCTURES: Cardiac silhouette not enlarged. Central airways and mediastinal contour are unremarkable. BONES AND SOFT TISSUES: No acute abnormality. RAD/Chest 1 View (Portable) IMPRESSION: No significant change from prior. Right-sided chest tube remains in place with no pneumothorax seen. Streaky bibasilar opacities remain. Electronically Signed: Kristian Gracia MD at 6:06 EDT ,
--- NOTE | 2023-12-24 07:51 | PN.SURG_ITS ---
Subjective Subjective Patient has been up to the chair yesterday as well as the day before. Patient denies hearing bubbles recently. No leak seen with cough and patient shifting around in bed. Chest x-ray shows lungs are still expanded. Objective Data Objective Data Vital Signs: Vital Signs Temp Pulse Resp BP Pulse Ox O2 Del Method O2 Flow Rate 97.6 F L 91 18 118/83 H 95 Nasal Cannula 2 12/24/23 03:15 12/24/23 03:15 12/24/23 03:15 12/24/23 03:15 12/24/23 03:15 12/24/23 03:15 12/24/23 03:15 Oxygen Flow Rate (L/min) 2 Oxygen Delivery Method Nasal Cannula Weight: 184 lb 15.485 oz Body Mass Index (BMI) 26.5 Intake & Output: Intake and Output for Last 24 Hours 12/22/23 12/23/23 12/24/23 23:59 23:59 23:59 Intake Total 840 / 840 420 / 420 Output Total 1038 / 1538 730 / 730 Balance -198 / -698 -310 / -310 Radiography Diagnostic Testing: Radiology Impression Chest X-Ray 12/23/23 05:45 IMPRESSION: 1. No change the right-sided chest tube. 2. No significant pneumothorax. Electronically Signed: Asad Cordero MD at 6:18 EDT , Chest X-Ray 12/23/23 13:55 IMPRESSION: Stable right upper lobe chest tube. No visualized pneumothorax. Electronically Signed: Baltazar Zhong MD at 15:09 EDT , Chest X-Ray 12/24/23 05:55 IMPRESSION: No significant change from prior. Right-sided chest tube remains in place with no pneumothorax seen. Streaky bibasilar opacities remain. Electronically Signed: Kristian Gracia MD at 6:06 EDT , Physical Exam Narrative Right chest tube in place to -20 no leak?did change to waterseal Const oriented x3 and no apparent distress Resp normal respiratory effort Cardio regular rate GI soft to palpation Assessment & Plan Assessment/Plan (1) Pneumothorax, right: (2) Post-operative complication: PLAN: Plan Patient's x-ray this morning shows no pneumothorax, tube in good position. No leak seen at Pleur-evac, will try waterseal again today. Will check chest x-ray at 2 PM. Rashida Hunter M.D. Pager: [phone] [facility] [address] [place] [address], [facility], [address] [place] [address] Office: [phone]
[2023-12-24 08:01] VITALS: BP 138/78; PULSE 87; RESP 16; TEMP 37; O2SAT 97
[2023-12-24] MEDS: amLODIPine 5 MG Tablet PO (08:06)
[2023-12-24 08:38] VITALS: O2SAT 94
[2023-12-24] MEDS: Pivot 1.5 Cal 1,000 ML BOTTLE 237 ML GT ×3 (08:47→21:20)
[2023-12-24] MEDS: Senna Tablet 1 TABLET PO (09:32)
--- NOTE | 2023-12-24 14:00 | RAD_ITS ---
INDICATION: chest tube -- portable EXAMINATION/TECHNIQUE: X-RAY - XR Chest 1 View COMPARISON: December 24, 2023 at 05:06 hours FINDINGS: LINES/DEVICES: Stable right chest tube and right venous port. LUNGS: Possible focal left basilar infiltrate/atelectasis. Right basilar atelectasis. No pneumothorax. MEDIASTINUM AND CARDIOVASCULAR STRUCTURES: Cardiac silhouette not enlarged. Central airways and mediastinal contour are unremarkable. BONES AND SOFT TISSUES: Unremarkable. RAD/Chest 1 View (Portable) IMPRESSION: Basilar infiltrates/atelectasis. Electronically Signed: Hernesto Rosario DO at 16:55 EDT Reading Location ID and State: [facility] / [place] Tel [phone], Service support ,
[2023-12-24 21:10] VITALS: BP 133/84; PULSE 99; RESP 13; TEMP 37.2; O2SAT 96
[2023-12-25 03:10] VITALS: BP 120/76; PULSE 91; RESP 16; TEMP 37.1; O2SAT 95
--- NOTE | 2023-12-25 05:55 | RAD_ITS ---
INDICATION: chest tube -- portable EXAMINATION/TECHNIQUE: X-RAY - XR Chest 1 View COMPARISON: Chest x-ray from one day prior FINDINGS: LINES/DEVICES: Right chest tube tip remains at apex. Right jugular Mediport catheter tip at upper cavoatrial junction. LUNGS: No appreciable pneumothorax. Bibasilar linear atelectatic changes again noted. No sizable pleural effusion. MEDIASTINUM AND CARDIOVASCULAR STRUCTURES: Heart size within normal limits. Mediastinal contours unremarkable. BONES AND SOFT TISSUES: No acute findings. RAD/Chest 1 View (Portable) IMPRESSION: Right chest tube in place with no appreciable pneumothorax. Electronically Signed: Rodrick Hassan MD at 5:55 EDT ,
--- NOTE | 2023-12-25 07:16 | PCM.PN.SRG ---
Subjective Subjective no leak- pt has no complaints Objective Data Objective Data Vital Signs: Vital Signs Temp Pulse Resp BP Pulse Ox O2 Del Method O2 Flow Rate 98.8 F 91 16 120/76 95 Room Air 2 12/25/23 03:10 12/25/23 03:10 12/25/23 03:10 12/25/23 03:10 12/25/23 03:10 12/25/23 03:10 12/24/23 03:15 Oxygen Flow Rate (L/min) 2 Oxygen Delivery Method Room Air Weight: 184 lb 15.485 oz Body Mass Index (BMI) 26.5 Intake & Output: Intake and Output for Last 24 Hours 12/23/23 12/24/23 12/25/23 23:59 23:59 23:59 Intake Total 840 / 840 470 / 470 Output Total 1038 / 1538 730 / 1430 1150 / 1150 Balance -198 / -698 -260 / -960 -1150 / -1150 Radiography Diagnostic Testing: Radiology Impression Chest X-Ray 12/24/23 14:00 IMPRESSION: Basilar infiltrates/atelectasis. Electronically Signed: Hernesto Rosario DO at 16:55 EDT , Chest X-Ray 12/25/23 05:55 IMPRESSION: Right chest tube in place with no appreciable pneumothorax. Electronically Signed: Rodrick Hassan MD at 5:55 EDT , Physical Exam Narrative Right chest tube in place to waterseal- no leak Const oriented x3 and no apparent distress Resp normal respiratory effort Cardio regular rate GI soft to palpation Assessment & Plan Assessment/Plan (1) Pneumothorax, right: (2) Post-operative complication: PLAN: Plan Patient's x-ray this morning shows no pneumothorax, tube in good position. No leak seen at Pleur-evac, will clamp tube x 2 hrs & check 2 view cxr. if ok will remove CT & recheck cxr after if ok will d/c. Rashida Hunter M.D. Pager: [phone] [facility] [address] [place] [address], [address] [place] [address] Office: [phone]
[2023-12-25 07:40] VITALS: O2SAT 95
--- NOTE | 2023-12-25 09:29 | RAD_ITS ---
STUDY: X-RAY CHEST REASON FOR EXAM: Male, 53 years old. Chest tube TECHNIQUE: Single AP portable view of the chest. COMPARISON: Comparison is made with prior study done at 4:24 AM. FINDINGS: A large caliber right-sided chest tube is seen in the right apex. There is no evidence of pneumothorax. A right-sided portacatheter is seen. Mild increased markings at the lung bases suggestive of atelectasis although this has improved. Normal size heart. Normal mediastinum and sina. Normal visualized pulmonary arteries. There is atherosclerotic calcification of the aortic arch with tortuosity. There are diffuse degenerative changes of the visualized thoracic spine. Normal visualized ribs, clavicles, and shoulders. There is no demonstrated abnormality of the visualized soft tissue structures of the upper abdomen. RAD/Chest PA and Lateral IMPRESSION: No evidence of pneumothorax. Electronically Signed: Leonard Correia MD at 10:20 EDT ,
[2023-12-25 10:15] VITALS: BP 130/80; PULSE 96; RESP 16; TEMP 36.6; O2SAT 94
[2023-12-25] MEDS: Pivot 1.5 Cal 1,000 ML BOTTLE 237 ML GT ×2 (10:33→14:04)
[2023-12-25] MEDS: amLODIPine 5 MG Tablet PO (10:33)
--- NOTE | 2023-12-25 10:35 | PCM.PN.BLA ---
Progress Note CXR after 2 hr of clamping of tubing- no PTX--right CT removed-pt tolerated well. 0 silk securing suture was tied and xeroform/gauze/opsite was placed. CXR ordered for 2 hrs.
--- NOTE | 2023-12-25 12:04 | PCM.DC.SUM ---
Providers Date of Admission: 12/18/23 Primary Care Physician: Dr. Lata Bennett MD Reason For Visit: RIGHT PTX S/P PORT Diagnosis Discharge Diagnosis (1) Pneumothorax, right: Status: Acute Code(s): J93.9 - Pneumothorax, unspecified (2) Post-operative complication: Status: Acute Code(s): T81.9XXA - Unspecified complication of procedure, initial encounter Plan Patient's x-ray this morning shows no pneumothorax, tube in good position. No leak seen at Pleur-evac, will clamp tube x 2 hrs & check 2 view cxr. if ok will remove CT & recheck cxr after if ok will d/c. Rashida Hunter M.D. Pager: [phone] [facility] [address] [place] [address], [facility], [address] [place] [id number] Office: [phone] Medications at Discharge Home Medications amlodipine 5 mg tablet 5 mg PO DAILY 11/27/23 tramadol 50 mg tablet 50 mg PO Q6H PRN pain 11/27/23 acetaminophen 160 mg/5 mL oral liquid 160 mg PO Q8H PRN pain 12/03/23 amoxicillin 875 mg tablet 875 mg PO BID 12/10/23 dexamethasone 4 mg tablet 8 mg (2 x 4 mg) PO .COMPLEX #40 tabs 12/12/23 lidocaine-prilocaine 2.5 %-2.5 % topical cream 1 applic topical ONCE PRN port access 30 days #30 grams 12/12/23 ondansetron 8 mg disintegrating tablet 8 mg PO Q8H PRN nausea and vomiting #30 tabs 12/12/23 prochlorperazine maleate 10 mg tablet 10 mg PO Q6H PRN nausea and vomiting #30 tabs 12/12/23 Hospital Course Operations - (right IJ port placement) Procedures - (right chest tube) Summary of Care Provided Minutes Spent on Discharge: 15 Hospital Course: Patient presented for placement of Port-A-Cath. Status post right IJ port placement chest x-ray in PACU did show right pneumothorax. Patient did have a percutaneous 8 Indian chest tube placed that was directed superiorly and appeared to resolve pneumo however in the following day pneumothorax with chest tube in place on -20 suction. Patient was taken to fluoroscopy for placement of the larger chest tube?20 Indian. Again post procedure the chest tube appeared have resolved the pneumothorax. Next morning he had a larger pneumothorax as the chest tube was kinked outside the body. Once the tube was unkinked the lung was able to reexpand. Patient did continue to have an air leak during this time in the waterseal chamber. The following morning patient had an apical pneumothorax and tube was not kinked and was still to suction. The 20 Indian chest tube was placed changed to a 28 Indian chest tube again under fluoroscopy. And chest ray showed lung was still expanded however he still continued to have an air leak. Lungs are is no more air leak patient was able to be changed to waterseal. And chest x-ray was also checked after waterseal and then clamping the tube for additional 2 hours and showed no evidence of pneumothorax. Patient was able to have the right chest tube DC'd and post removal film showed no pneumothorax. Patient was tolerating diet throughout the hospitalization and did start getting some bolus feeds to help with his overall nutrition through the PEG tube. Physical Exam Const oriented x3 Resp normal respiratory effort Cardio regular rate GI soft to palpation and non-tender Weight / BMI Weight Weight: 184 lb 15.485 oz Body Mass Index (BMI) 26.5 Radiography Diagnostic Testing: Radiology Impression Chest X-Ray 12/24/23 14:00 IMPRESSION: Basilar infiltrates/atelectasis. Electronically Signed: Hernesto Rosario DO at 16:55 EDT , Chest X-Ray 12/25/23 05:55 IMPRESSION: Right chest tube in place with no appreciable pneumothorax. Electronically Signed: Rodrick Hassan MD at 5:55 EDT , Chest X-Ray 12/25/23 09:29 IMPRESSION: No evidence of pneumothorax. Electronically Signed: Leonard Correia MD at 10:20 EDT , D/C Instructions Discharge Diet: Light diet - advance as tolerated May shower in (days): 5 (Keep port site clean and dry x5 days. Neck incision okay to get wet after 1 day. Okay to lower shower and upper sponge bath. OR okay to taper off port site with a Ziploc bag to shower) Call your doctor if your incision/area has: Continuous Slow Oozing, Sudden Increased Bleeding, Increased Pain/ Swelling, Increased Redness, Foul Smelling Discharge and Swelling at the incision site Call your doctor if you observe: Fever of 101 or Higher Additional Dressing/Incision Instructions: Keep right chest dressing in place x 5 days. Please Follow Up With: Rashida Hunter MD When: Call the office for an appointment for Saturday the . Suture removal right chest and port Meaningful Use Info Meaningful Use Diagnoses (Choose all that apply): None applicable Discharge Plan Admission Admit Date/Time: 12/18/23 13:05 Attending Provider: Rashida Hunter Primary Care Provider: Lata Bennett Discharge Orders/Prescriptions Prescriptions: Continued amlodipine 5 mg tablet 5 mg PO DAILY tramadol 50 mg tablet 50 mg PO Q6H PRN (Reason: pain) acetaminophen 160 mg/5 mL liquid 160 mg PO Q8H PRN (Reason: pain) lidocaine-prilocaine 2.5-2.5 % cream 1 applic topical ONCE PRN (Reason: port access) 30 Days Qty: 30 2RF dexamethasone 4 mg tablet 8 mg PO .COMPLEX Qty: 40 0RF Rx Instructions: 8 mg orally daily on days 2-4 of chemotherapy cycle ONLY ondansetron 8 mg tablet,disintegrating 8 mg PO Q8H PRN (Reason: nausea and vomiting) Qty: 30 2RF prochlorperazine maleate 10 mg tablet 10 mg PO Q6H PRN (Reason: nausea and vomiting) Qty: 30 2RF amoxicillin 875 mg tablet 875 mg PO BID Patient Comments: take 1 tablet by mouth twice a day Referrals / Follow Up: Lata Bennett MD [Primary Care Provider] - Disposition Disposition (needs filled in before D/C Order can be placed): Home, Self Care
--- NOTE | 2023-12-25 12:30 | RAD_ITS ---
STUDY: X-RAY CHEST REASON FOR EXAM: Male, 53 years old. Withdrawal of right thoracostomy tube. TECHNIQUE: Frontal and lateral views of the chest. COMPARISON: 12/25/2023 FINDINGS: Stable right internal jugular catheter. Right thoracostomy tube removed. No pneumothorax. Stable mild hyperinflation and right pleural effusion. No acute or emergent finding. No abnormality of the visualized soft tissue structures of the upper abdomen. RAD/Chest PA and Lateral IMPRESSION: Removal of right thoracostomy tube with no change and no complicating features. Electronically Signed: Dat Pelaez MD at 14:37 EDT ,
[2023-12-25 14:00] VITALS: BP 124/77; PULSE 97; RESP 16; TEMP 36.8; O2SAT 97
--- NOTE | 2023-12-25 15:39 | CASEMGMT ---
NAMITA DAVID NOTE: Pt has been discharged. NAMITA DAVID spoke w/ST Adrienne, who also works as an OP ST and she verifies they have received an OP dysphagia C/S order from Dr Gonzalez @ [facility] and if additional consult for dysarthria assess/treatment is needed, she will f/u w/physician and pt about this as an OP. Beverly RED RN, CM
== END 2023-12-25 15:03 | disposition home or self-care (01) | DRG 168 ==
LOC: SDC 14:06 → PCU 14:06
PROVIDERS: Admitting Provider Surgery; PCP Internal Medicine; Referring Provider Internal Medicine; Visit Provider Surgery
PROC: 0JH60WZ Insertion of Totally Implantable Vascular Access Device into Chest Subcutaneous Tissue and Fascia, Open Approach (ICD-10-PCS; principal; 2023-12-18 08:45)
DX: J95.811 Postprocedural pneumothorax (principal); C02.0 Malignant neoplasm of dorsal surface of tongue; Z93.1 Gastrostomy status; I10 Essential (primary) hypertension; J95.812 Postprocedural air leak; Z45.2 Encounter for adjustment and management of vascular access device; Z79.899 Other long term (current) drug therapy
CPT/HCPCS: 71045; 71046; 76000; 77001; 92526; 92610; 94668; 97802; 97803; J7120; A4216; C1769; J2405

== ENCOUNTER → 2024-01-06 | Outpatient (CLI) | payer BC, SELFPAY ==
--- NOTE | 2024-01-06 10:29 | ST.MBS ---
Modified Barium Swallow Patient Information Study Date: 01/06/24 Study Time: 10:00 Direct Billable Minutes: 58 Total Minutes procedure & reportin Diagnosis: Cancer of anterior two-thirds of tongue, dorsal surface C02.0 Referring Physician: Gelacio Gonzalez Reason for Referral: Objectively assess swallow function, assess risk for aspiration, and determine recommendations for least restrictive diet textures and compensatory strategies to improve safety of swallow. Medical History: Other Relevant Medical History/Diagnoses/Surgery: PMH: Dysphagia, Elevated BP without diagnosis of HTN, Kidney stones, Neck abscess, Neck malignant neoplasm, SCC of tongue, Testicular cancer, Tracheostomy (removed 11/2023). 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 The patient is currently receiving chemoradiation treatment for SCC of tongue, which began 12/30/23. Of note, he had post-surgery complication with chemo port placed 12/18/23 w/ R pneumothorax. Chest tube placed, and he was admitted to PCU for subsequent management. He has since been discharged and cleared for his chemoradiation treatment. He was referred for ST due to concerns for dysphagia. BSE 01/03/24 revealed mild oral dysphagia and recommended Regular textures / Thin liquids with use of strategies and PEG tube present to supplement as needed. Current Diet Ordered: Regular textures / Thin liquids Dentition: WNL and Natural Teeth Mental Status: WNL Respiratory Status: Oxygenating on Room Air Penetration-Aspiration Scale Penetration-Aspiration Scale: OBJECTIVE ASSESSMENT OF SWALLOW FUNCTION (QUANTITATIVE ? PER TRIAL): PENETRATION / ASPIRATION SCALE (ESTRADA): 1 = does not enter airway 2 = enters airway/above vocal folds/ejected 3 = enters airway/above vocal folds/not ejected 4 = enters airway/contacts vocal folds/ejected 5 = enters airway/contacts vocal folds/not ejected 6 = enters airway/below vocal folds/ejected 7 = enters airway/below vocal folds/not ejected despite effort 8 = enters airway/below vocal folds/no effort VIDEOFLOROSCOPIC SCALE SCORE (ESTRADA): Grade I = aspiration of material that has penetrated into the laryngeal vestibule, intact cough reflex Grade II = aspiration < 10 % of the bolus, intact cough reflex Grade III = aspiration of < 10 % of the bolus, reduced cough reflex or aspiration of > 10 % of the bolus, intact cough reflex Grade IV = aspiration of > 10 % of the bolus, reduced cough reflex Penetration-Aspiration Scale Score Thin Liquid via teaspoon: Result: 1= does not enter airway Thin Liquid via teaspoon Trial 2: Result: 1= does not enter airway Thin Liquid via large single sip: cup: Result: 1= does not enter airway [place] Thick Liquid via small single sip: cup: Result: 1= does not enter airway Pudding via teaspoon: Result: 1= does not enter airway 1/2 Cookie: Result: 1= does not enter airway Thin Liquid via single sip: straw: Result: 1= does not enter airway Oral Phase Labial Seal: No Labial Escape Tongue Control During Bolus Hold: Posterior escape of less than half of bolus Bolus Preparation/Mastication: Timely and efficient chewing and mashing Bolus Transport/Lingual Motion: Brisk tongue motion Oral Residue: Residue collection on oral structures Pharyngeal Phase Initiation of Pharyngeal Swallow: Bolus head in valleculae Soft Palate Elevation: No bolus between soft palate and pharyngeal wall Laryngeal Elevation: Comp. Superior move thyroid cart w/comp. apprx arytenoid cart-epig pet Anterior Hyoid Excursion: Partial anterior movement Epiglottic Movement: Complete inversion Laryngeal Vestibule Closure at Height of Swallow: Complete; no air/contrast in laryngeal vestibule Pharyngeal Stripping Wave: Present - complete Pharyngoesophageal Segment Opening: Complete distension and complete duration; no obstruction of flow Tongue Base Retraction: Trace column of contrast between tongue base & post. pharyngeal wall Pharyngeal Residue: Trace residue within or on pharyngeal structures Esophageal Phase Esophageal Clearance: Complete clearance Diagnosis/Impression Diagnosis: Mild oral dysphagia R13.10 Recommendations Diet: Regular Textures and Thin Liquids Compensatory Strategies: Small Bites (Finger sweep to clear oral residues/pocketing as needed), Small Sips, Slow Rate, Alternate bites/solids and sips/liquids, Sitting upright and Remain sitting upright for 30 minutes after PO intake Recommend Repeat Modified Barium Swallow: Yes Comment: Repeat MBSS 3 months after completion of radiation to monitor swallow function as the patient is at risk for worsening dysphagia and aspiration risk s/p radiation treatment. Need for Skilled Speech Therapy Services: Yes Comment: Recommend continued OP ST during and following radiation treatment for ongoing assessment of diet tolerance and aspiration risk, education re: potential short- and long-term impacts of radiation that negatively impact swallow function, training in oropharyngeal exercise program, and training in recommended strategies to encourage safe po intake. Education Completed: 1. Described result of evaluation. and 2. Pt understands evaluation & agrees with goals and treatment plan. Status Active ST Patient: Active Contact Information [facility] Speech Therapy:: Adrienne Sutherland M.A. CCC-CUTTING MACHINE TENDER? Speech-Language Pathologist?? [facility] [address]?? [place] [address]?? [email or web address]?? [phone]??
== END | disposition home or self-care (01) ==
LOC: RAD 09:55
PROVIDERS: PCP Internal Medicine; Referring Provider Student in an Organized Health Care Education/Training Program; Visit Provider Student in an Organized Health Care Education/Training Program
DX: C02.0 Malignant neoplasm of dorsal surface of tongue (principal)
CPT/HCPCS: 74230; 92611

== ENCOUNTER → 2024-09-14 | Outpatient (CLI) | payer BC, SELFPAY ==
--- NOTE | 2024-09-14 09:55 | RAD_ITS ---
STUDY: X-RAY CHEST REASON FOR EXAM: Male, 54 years old. TONGUE CA TECHNIQUE: Frontal and lateral views of the chest. COMPARISON: 12/25/2023. FINDINGS: Stable appearance of a right indwelling Mediport catheter terminating near the cavoatrial junction. There is hyperinflation of the lungs consistent with chronic obstructive lung disease (COPD). No infiltrates or effusions. Question of 4 cm density in the periphery of the mid right lung, also present previously. Consider CT scan for better evaluation. Normal size heart. Normal mediastinum and sina. Normal visualized pulmonary arteries. Normal visualized aortic arch and descending thoracic aorta. Normal visualized thoracic spine. Normal visualized ribs, clavicles, and shoulders. There is no demonstrated abnormality of the visualized soft tissue structures of the upper abdomen. RAD/Chest PA and Lateral IMPRESSION: (COPD). No infiltrates or effusions. Question of 4 cm density in the periphery of the mid right lung, also present previously. Consider CT scan for better evaluation. Electronically Signed: Saji Duran MD at 23:59 EST ,
== END | disposition home or self-care (01) ==
LOC: RAD 09:52
PROVIDERS: PCP Internal Medicine; Referring Provider Internal Medicine Medical Oncology; Visit Provider Internal Medicine Medical Oncology
DX: C02.0 Malignant neoplasm of dorsal surface of tongue (principal)
CPT/HCPCS: 71046

== ENCOUNTER → 2024-09-24 | Outpatient (CLI) | payer BC, SELFPAY ==
--- NOTE | 2024-09-24 15:51 | SP.MBSS_ITS ---
Modified Barium Swallow Patient Information Study Date: 09/24/24 Study Time: 13:00 Direct Billable Minutes: 120 Total Minutes procedure & reportin Diagnosis: Cancer of anterior 2/3 of tongue, dorsal surface C02.0 Referring Physician: Gelacio Gonzalez Reason for Referral: Objectively assess swallow function, assess risk for aspiration, and determine recommendations for least restrictive diet textures and compensatory strategies to improve safety of swallow. Medical History: Other Relevant Medical History/Diagnoses/Surgery: PMH: Dysphagia, Elevated BP without diagnosis of HTN, Kidney stones, Neck abscess, Neck malignant neoplasm, SCC of tongue, Testicular cancer, Tracheostomy (removed 11/2023). 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 From 12/30/2023 ? 02/11/2024 he received adjuvant chemoradiation. Of note, he had post-surgery complication with chemo port placed 12/18/23 w/ R pneumothorax. Chest tube placed, and he was admitted to PCU for subsequent management. He was discharged and cleared for his chemoradiation treatment. He was referred for ST due to concerns for dysphagia. BSE 01/03/24 revealed mild oral dysphagia and recommended Regular textures / Thin liquids with use of strategies and PEG tube present to supplement as needed. He has participated in MBSS 01/06/24, which revealed mild oral dysphagia and recommended Regular Textures and Thin Liquids; Compensatory Strategies: Small Bites (Finger sweep to clear oral residues/pocketing as needed), Small Sips, Slow Rate, Alternate bites/solids and sips/liquids, Sitting upright and Remain sitting upright for 30 minutes after PO intake. Pt was last seen for OP ST 05/04/24. He was consuming regular textures / thin liquids at that time (2-3 meals and some snacks) w/ plans for PEG tube removal. Pt was requiring liquid wash w/ bites. He admits to poor adherence to home oropharyngeal and neck ROM exercise program. Pt informed radiation oncologist at recent office visit that he was having increased swallowing difficulty. He is also experiencing weight loss and has a orchard manager consult placed. He has been recommended for repeat MBSS. Current Diet Ordered: Ground and pureed textures / thin liquids Dentition: Natural Teeth and Missing Teeth Mental Status: WNL Respiratory Status: Oxygenating on Room Air Penetration-Aspiration Scale Penetration-Aspiration Scale: OBJECTIVE ASSESSMENT OF SWALLOW FUNCTION (QUANTITATIVE ? PER TRIAL): PENETRATION / ASPIRATION SCALE (ESTRADA): 1 = does not enter airway 2 = enters airway/above vocal folds/ejected 3 = enters airway/above vocal folds/not ejected 4 = enters airway/contacts vocal folds/ejected 5 = enters airway/contacts vocal folds/not ejected 6 = enters airway/below vocal folds/ejected 7 = enters airway/below vocal folds/not ejected despite effort 8 = enters airway/below vocal folds/no effort VIDEOFLOROSCOPIC SCALE SCORE (ESTRADA): Grade I = aspiration of material that has penetrated into the laryngeal vestibule, intact cough reflex Grade II = aspiration < 10 % of the bolus, intact cough reflex Grade III = aspiration of < 10 % of the bolus, reduced cough reflex or aspiration of > 10 % of the bolus, intact cough reflex Grade IV = aspiration of > 10 % of the bolus, reduced cough reflex Penetration-Aspiration Scale Score Thin Liquid via teaspoon: Result: 5= enters airways/contacts vocal folds/not ejected Comment: Cued cough and re-swallow = effective. Thin Liquid via teaspoon Trial 2: Result: 3= enters airways/above vocal folds/not ejected Thin Liquid via small single sip: cup: Result: 3= enters airways/above vocal folds/not ejected Comment: post prandial laryngeal penetration of residues to the vocal folds observed on next trial Cued cough and re-swallow = somewhat effective. [place] Thick Liquid via small single sip: cup: Result: 5= enters airways/contacts vocal folds/not ejected Comment: Cued cough and re-swallow = somewhat effective. Pudding via 1/2 teaspoon: Result: 2= enter airway/above vocal folds/ejected / Cookie: Result: 2= enter airway/above vocal folds/ejected Thin Liquid via sequential sips:straw: Result: 7= enters airways/below vocal folds/not ejected despite effort Comment: Reflexive cough did clear contrast from the trachea, but residues remained in the laryngeal vestibule. Cued cough and re-swallow = somewhat effective. Thin Liquid via small single sip: cup Chin tuck: Result: 5= enters airways/contacts vocal folds/not ejected Thin Liquid via small single sip: cup breath hold and swallow: Result: 5= enters airways/contacts vocal folds/not ejected Oral Phase Labial Seal: No Labial Escape Tongue Control During Bolus Hold: Posterior escape of less than half of bolus Bolus Preparation/Mastication: Disorganized chewing/mashing with solid pieces of bolus unchewed (small pieces of cookie un-chewed) Bolus Transport/Lingual Motion: Slowed tongue motion Oral Residue: Residue collection on oral structures Pharyngeal Phase Initiation of Pharyngeal Swallow: Bolus head at posterior laryngeal surgace of epiglottis Soft Palate Elevation: Trace column of contrast/air between soft palate and pharyngeal wall Laryngeal Elevation: Partial superior movement thyroid cart/partial apprx aryt- epig petiole Anterior Hyoid Excursion: Partial anterior movement Epiglottic Movement: No inversion Laryngeal Vestibule Closure at Height of Swallow: Incomplete; narrow column of air/contrast in laryngeal vestibule Pharyngeal Stripping Wave: Present - diminished Pharyngoesophageal Segment Opening: Parital distension and partial duration; parital obstruction of flow Tongue Base Retraction: Narrow column of contrast between tongue base & post. pharyngeal wall Pharyngeal Residue: Collection of residue within or on pharyngeal structures Esophageal Phase Esophageal Clearance: Esophageal retention (Trace in UES, complete clearance of pudding through remainder of the esophagus) Treatment Strategies Effects of treatment strategies attemped:: Chin tuck = not effective Breath hold (prior to swallow) = not effective Cough and re-swallow = effective Diagnosis/Impression Diagnosis: Moderate oropharyngeal dysphagia R13.12 Impression: The oral phase is primarily marked by... -Decreased bolus control w/ premature posterior loss of <1/2 the bolus to the pyriforms prior to swallow onset. -Mild-moderate oral residues, which improved w/ use of liquid wash. -Slowed tongue motion for A-P transport. -Decreased mastication w/ small pieces of cookie un-chewed likely related to restricted tongue mobility s/p tongue cancer w/ hemiglossectomy s/p chemoradiation treatment. The pharyngeal phase is primarily marked by.. -Worsening pharyngeal motility as compared to previous MBSS w/ decreased TB retraction, pharyngeal contraction, and UES opening/duration w/ moderate-severe pharyngeal residues most notable w/ cookie. Genoveva required multiple liquid washes to clear majority of the bolus through his pharynx. -Decreased airway closure during the swallow due to decreased laryngeal elevation, anterior hyoid excursion, and no epiglottic inversion. -Aspiration of thin liquids via sequential straw. Consistent laryngeal penetration of liquids (thin and mildly thick) w/ somewhat effective reflexive throat clear/cough. Laryngeal penetration did not fully eject, placing pt at increased risk for post prandial aspiration. Use of cough and re-swallow was somewhat effective in reducing aspiration risk. Pt is recommended for GI consult due to poor UES opening/duration, which appears to be partially obstructing bolus clearance. Recommendations Diet: Mechanical Soft Textures (Minced and Moist Textures - IDDSI Level 5) and Thin Liquids Compensatory Strategies: Small Bites, Small Sips (Cough/hard throat clear and re-swallow after each sip), Slow Rate, Multiple Swallows, Alternate bites/solids and sips/liquids, Sitting upright and Remain sitting upright for 30 minutes after PO intake Recommend Repeat Modified Barium Swallow: Yes Comment: 3-6 months to monitor risk for worsening swallow function s/p chemoradiation treatment for tongue cancer. Need for Skilled Speech Therapy Services: Yes Comment: Recommend return to OP ST to address worsening swallow function, pt concerns for worsening trismus. CORPORATE TRAVEL MANAGER is recommending intensive dysphagia therapy w/ POC to include oropharyngeal strengthening, neck ROM, and jaw ROM exercises in junction with myofascial release. The patient is agreeable to intensive dysphagia therapy, and would like to resume therapy as soon as possible. He verbalized that he is very motivated to resume oropharyngeal exercise program, neck ROM exercises. Per radiation oncologist, the patient is cleared for participation in myofascial release with CORPORATE TRAVEL MANAGER. Recommended Referrals: GI Consult Education Completed: 1. Described result of evaluation., 2. Pt understands evaluation & agrees with goals and treatment plan., 4. Family/caregivers understand evaluation & agree w/ goals & tx plan. and 7. Pt requires further education on strategies & risks. Comment: CORPORATE TRAVEL MANAGER provided brief instruction and provided handouts for the following oropharyngeal exercises: Carla, CTAR, Effortful breath hold and swallow, Yawn stretch. Pt provided return demonstration. He was unable to complete Justin. CORPORATE TRAVEL MANAGER also provided handout for minced and moist texture testing and preparation tips. Status Active ST Patient: Active Contact Information [facility] Speech Therapy:: Adrienne Sutherland M.A. [facility]-CORPORATE TRAVEL MANAGER? Speech-Language Pathologist?? [facility] [address] [place] [address]? [email or web address]?? [phone]
== END | disposition home or self-care (01) ==
LOC: RAD 12:49
PROVIDERS: PCP Internal Medicine; Referring Provider Student in an Organized Health Care Education/Training Program; Visit Provider Student in an Organized Health Care Education/Training Program
DX: C02.0 Malignant neoplasm of dorsal surface of tongue (principal)
CPT/HCPCS: 74230; 92611

== ENCOUNTER 2024-10-09 08:30 | Outpatient (RCR) | payer BC, OTHER, SELFPAY ==
--- NOTE | 2024-09-28 14:15 | HP.SP.EV_ITS ---
Visit History Visit Info Date of Eval: 09/28/24 Visit: 1 Leather Tanner: SHANNAN History Attending Doctor: Referring Doctor: Reason for Referral: ANTERIOR TONGUE CANCER/RX SCANNED IN Medical Diagnosis: Cancer of anterior 2/3 of tongue, dorsal surface C02.0 Date of Onset of Diagnosis: 11/01/2023 Other Relevant Medical History/Diagnoses/Surgery: PMH: Dysphagia, Elevated BP without diagnosis of HTN, Kidney stones, Neck abscess, Neck malignant neoplasm, SCC of tongue, Testicular cancer, Tracheostomy (removed 11/2023). 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 From 12/30/2023 ? 02/11/2024 he received adjuvant chemoradiation. Of note, he had post-surgery complication with chemo port placed 12/18/23 w/ R pneumothorax. Chest tube placed, and he was admitted to PCU for subsequent management. He was discharged and cleared for his chemoradiation treatment. He was referred for ST due to concerns for dysphagia. BSE 01/03/24 revealed mild oral dysphagia and recommended Regular textures / Thin liquids with use of strategies and PEG tube present to supplement as needed. He has participated in MBSS 01/06/24, which revealed mild oral dysphagia and recommended Regular Textures and Thin Liquids; Compensatory Strategies: Small Bites (Finger sweep to clear oral residues/pocketing as needed), Small Sips, Slow Rate, Alternate bites/solids and sips/liquids, Sitting upright and Remain sitting upright for 30 minutes after PO intake. Pt was last seen for OP ST 05/04/24. He was consuming regular textures / thin liquids at that time (2-3 meals and some snacks) w/ plans for PEG tube removal. Pt was requiring liquid wash w/ bites. He admits to poor adherence to home oropharyngeal and neck ROM exercise program. Pt informed radiation oncologist at recent office visit that he was having increased swallowing difficulty. 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 He was been recommended for repeat MBSS, which was completed on 09/24/24 and revealed moderate oropharyngeal dysphagia w/ recommendations for minced and moist textures / thin liquids w/ the following compensatory strategies: : Small Bites, Small Sips (Cough/hard throat clear and re-swallow after each sip), Slow Rate, Multiple Swallows, Alternate bites/solids and sips/liquids, Sitting upright and Remain sitting upright for 30 minutes after PO intake. Pt is also recommended for GI consult due to poor UES opening impacting bolus clearance. Smoking Status: Never smoker Pain Is pain an issue with your current prescribed condition?: Yes Personal Preferred language: Mongolian Patient Allergies Allergies Allergies: Allergies oxycodone (From Percocet) Adverse Reaction (Verified 09/24/24 15:26) Nausea Subjective Dysphagia Symptoms Reported Symptoms/Problems with: Difficulty Swallowing Solids, Difficulty Swallowing Liquids, Pain on Swallowing, Food gets stuck and Xerostomia Current Diet Solids Current Diet: Minced Current Diet Liquids Current Liquids: Thin Comments Throat pain: -: Patient reported that eating causes coughing fits and throat pain accompanies coughing fits. Objective Dysphagia Administered by Administered by: Self Thin Liquids Administred via: Cup Oral Transit: Delay > 1 seconds Bolus clearance: significant clearance/minimal residue Cough: throat clear Comments: PHYSICIAN OFFICE NURSE cued pt for use of cough/hard throat clear and re-swallow after sips recommended by recent MBSS, which pt executed w/ no additional overt s/s of aspiration. Pureed Administered via: Spoon Oral Transit: Delay > 1 seconds Bolus clearance: some clearance/residue Cough: throat clear Comments: Minimal throat clearing, PHYSICIAN OFFICE NURSE encouraged liquid washes. Swallowing Impairment Contributing Factors to Swallowing Impairment: Impaired Oral-Pharyngeal Transport, Delayed Swallow Initiation and Reduced Laryngeal Excursion Other: Decreased pharyngeal motility and UES opening/duration per recent MBSS Impact Impact on Safety & Functioning: Risk for Aspiration and Risk for Inadequate Nutrition/Hydration Recommendations Swallowing Treatment: Yes Diet Texture Recommendations Solids: Minced & Moist (Level 5, Mechanical Soft) Liquids: Thin (Level 0) Other: Small Bites, Small Sips (Cough/hard throat clear and re-swallow after each sip), Slow Rate, Multiple Swallows, Alternate bites/solids and sips/liquids, Sitting upright and Remain sitting upright for 30 minutes after PO intake. Results Swallowing Diagnosis: Oropharyngeal Phase Dysphagia (R13.12) Severity: Moderate Objective Oral Motor Jaw Impairment: Severe Opening Measurement: 18mm (previous jaw opening = 31mm 02/06/2024) Jaw Comments Comments: PHYSICIAN OFFICE NURSE instructed pt in diagnostic therapy for 7-7-7 trismus program. Pt improved 3mm (21mm) after 1 set. 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 V Trigeminal Nerve V Trigeminal Nerve Response: Impaired Comment:: decreased contraction of L masseter, decreased laryngeal elevation upon palpation VII Facial Nerve VII Facial Nerve Result: Impaired Comment: Impaired taste X Vagus Nerve X Vagus Nerve Result: Intact XII Hypoglossal Nerve XII Hypoglossal Nerve Result: Impaired Comment:: minimal lateralization L and R, gross weakness, moderately decreased lingual protrusion Swallowing Performance Scale Swallowing Performance Scale Swallowing Performance Scale Result: 5 Moderate Reference: Neuro-QoL instrument Radiation Oncology Patient FOIS Functional Oral Intake Scale Total oral diet with multiple consistencies, but requiring special preparation or compensations: Level 5 Plan Plan Plan: ST recommends intensive dysphagia therapy to address moderate oropharyngeal dysphagia and trismus secondary to SCC of left lateral tongue s/p left hemiglossectomy, left modified radical neck dissection of levels 1?5 with sacrifice of left internal jugular vein, and free flap based reconstruction w/ adjuvant chemoradiation from 12/30/2023 ? 02/11/2024. POC to include training the patient in oropharyngeal, neck ROM, and jaw ROM exercises in junction w/ myofascial release. Pt's radiation oncologist, Dr. Gonzalez, has cleared him for participation in myofascial release. Without skilled ST services, the patient is at risk for worsening dysphagia, increased risk for aspiration and choking, malnutrition, and weight loss. Recommendations Treatment Warranted: Yes Treatment Warranted: Dysphagia Comment: MBSS in 3-6 months to monitor risk for worsening dysphagia and aspiration risk s/p chemoradiation Progress Prognosis: Fair Frequency Frequency: 3x /Week Duration: 2-4 Months Goals that are Established Determination:: Goals will be added/modified as deemed necessary and appropriate. Therapy will be discontinued when results of re-evaluation indicate therapy is no longer needed or lack of progress has been documented. Goal #1-5 Goal #1: The patient will consume least restrictive diet textures without overt s/s of aspiration with minimal verbal cues to utilize strategies to decrease risk for aspiration. Goal #2: The patient will complete a neck and oropharyngeal exercise program in junction w/ myofascial release with minimal verbal cues to improve strength, ROM, and coordination of swallowing mechanism. Goal #3: The patient will achieve jaw opening 35-55mm to promote improved mastication and speech production abilities. Goal #4: The patient will complete jaw strength, coordination, and ROM exercises during and post radiation treatment independently to improve mastication and speech production abilities (X10 repetitions, 3-5X daily). Goal #5: The patient will participate in routine MBSS/FEES to objectively assess swallow function and provide recommendations for safest, least restrictive diet and compensatory strategies to reduce risk for aspiration during and following chemoradiation treatment. Education Patient has Indicated that the Following The Patient has indicated that they have no educational or learning abilities that may effect their care.: Yes Patient Instruction Patient Education: Diagnosis, Treatment Plan, Goals, Safety Precautions, Diet Level and Home Exercise Program Other Education: Diagnostic treatment provided: Pt was trained in Carla, CTAR, Effortful breath hold and swallow, and Yawn stretch. Pt completed return demonstration X10 reps each with minimal verbal cues. He completed 7-7-7 jaw opening exercises X7 reps w/ minimal verbal cues. PHYSICIAN OFFICE NURSE also trained the patient in neck ROM exercises (head rotations L & R, head tilts L & R, shoulder shrugs, upward neck stretch) w/ return demonstration 1-2 reps each. He was unable to tolerate Shaker due to SOB lying flat, although SpO2 was upper 90s. BP 103/69, which is comparable to last office visit w/ oncology on 09/24/24 (103/67) Person Taught: Patient and Family Teaching Method: Discussion, Demonstration, Handout and Teach Back Response to teaching: Return Demonstration, Verbalize Understanding, Reinforcement Needed and Has Prior Knowledge
--- NOTE | 2024-11-19 10:30 | HP.SP.DC ---
ST Discharge Summary Discharged: Discharge: No continued dysphagia therapy warranted as the patient has unfortunately . Jef was a great pleasure to work with during this dysphagia POC.
== END 2024-10-23 19:00 | disposition home or self-care (01) ==
LOC: SP 08:30
PROVIDERS: PCP Internal Medicine; Referring Provider Student in an Organized Health Care Education/Training Program; Visit Provider Student in an Organized Health Care Education/Training Program
DX: C02.0 Malignant neoplasm of dorsal surface of tongue (principal)
CPT/HCPCS: 92526; 92610

== ENCOUNTER 2024-10-21 09:17 | Day surgery (SDC) | payer OTHER, SELFPAY ==
[2024-10-21] VITALS (9 sets, daily range): BP systolic 105–115; BP diastolic 69–82; PULSE 64–80; RESP 14–18; TEMP 36.8; O2SAT 98–100; BMI 19.2
--- NOTE | 2024-10-21 09:34 | HP.PCM_ITS ---
History and Physical Date of Admission: 10/21/24 Date of Service: 10/20/24 MR#: [id number] Acct: [id number] Name: ODALYS DUMONT Rep #: [id number] : 1970 Provider: Dr. Rashida Hunter MD Age/Sex: 54/M Location: [facility] Status: Signed Intake Vital Signs 10/16/2507:03 10/20/2509:00 Height 5 ft 10 in 5 ft 10 in Weight: 138 lb 1 oz 137 lb BMI 19.8 19.6 BP 119/76 107/72 Blood Pressure Location Rt brachial Rt brachial Position Sitting Sitting Respiration 16 17 Pulse 121 H 98 Pulse Source Monitor Monitor Temp 98.9 F 96.7 F L Temp Source Temporal Pulse Oximetry (%) 93 98 Oxygen Delivery Method room air room air Intake Visit Reasons: PEG TUBE Chief Complaint: peg tube Is patient in pain?: No Allergies oxycodone (From Percocet) Adverse Reaction (Verified 10/20/24 10:01) Nausea Medications ?Medication ?Instructions ?Recorded ?Confirmed ?Type amlodipine 5 mg tablet 5 mg PO DAILY blood pressure 11/27/23 10/20/24 History lidocaine-prilocaine 2.5 %-2.5 % 1 applic topical ONCE PRN port 12/12/23 10/20/24 Rx topical cream access 30 days #30 grams cyclobenzaprine 5 mg tablet 5 mg PO QHS PRN 09/14/24 10/20/24 History levothyroxine 75 mcg capsule 75 mcg PO QDAY 60 days #60 caps 09/24/24 10/20/24 Rx PFSH Medical History Tinnitus Hypokalemia Dehydration Acid reflux Encounter for education Wears glasses Open wound Alcohol use Difficulty chewing Heartburn Non-smoker Hypertension Neck malignant neoplasm Testicular cancer Neck abscess Dysphagia Squamous cell cancer of tongue Surgical History H/O tooth extraction History of tonsillectomy History of orchiectomy Hx of glossectomy Status post insertion of percutaneous endoscopic gastrostomy (PEG) tube Family History Father Hypertension DiabetesMother HypertensionSister Cancer TONGUE Social History (Reviewed 10/20/24 @ 10:00 by Sangita Duran Smoking Status: Never smoker alcohol intake: current alcohol intake frequency: a few times a month substance use type: does not use HPI HPI HPI: 53-year-old male presents for PEG tube placement. Patient had surgery due to tongue cancer October 2023 and did undergo treatment of chemotherapy and radiation. Patient initially had a PEG tube which was able to be removed as he was able to eat well. However more recently he has had issues swallowing and is scheduled to see his surgeon as well. Patient has been losing weight and needs PEG tube replaced. Patient's employers insurance was previously [employer] however they did switch statin at this year however currently they do not have a group number for him and he is scheduled for an EGD with PEG tube placement tomorrow. ROS General General: Yes weight change and fatigue; No appetite, colon cancer, breast cancer or weakness HEENT HEENT: Yes difficulty swallowing; No eye injury, eye surgery, swollen glands or hoarseness Endo Endocrine: No thyroid disease, diabetes mellitus, thyroid cancer, Hair loss, heat intolerance or cold intolerance Skin Skin: No rash or changing moles Musc Musculoskeletal: No back problems, arthritis, rheumatoid arthritis, gout or joint pain Cardio Cardiovascular: Yes high blood pressure; No murmur, pacemaker, heart disease, atrial fibrillation, heart attack, heart stent, palpitations, shortness of breat with exertion or chest pain Psych Psychiatric: No depression, anxiety or hearing voices Resp Respiratory: No shortness of breath, Yes sleep apnea, No cough, No COPD, No asthma, No emphysema and No wheezing Gastro Gastrointestinal: No abdominal pain, No nausea or vomiting, No diarrhea, No constipation, No blood in stool, No acid reflux, No hemorrhoids, No ulcers, No gallbladder problem and No black,tarry stools Chad Hematologic: No blood thinners, No blood disorders, No bleeding, No anemia and No blood clots Neuro Neurologic: No system reviewed and no additional complaints, except as documented, No as per HPI, No abnormal gait, No abnormal hearing, No abnormal movements, No abnormal speech, No behavioral changes, No burning sensations, No confusion, No convulsions, No disequilibrium, No dizziness, No localized weakness, No frequent falls, No headache(s), No lack of coordination, No loss of vision, No memory loss, No numbness, No other visual disturbances, No radicular pain, No restless legs, No sensory deficit, No syncope, No tingling, No tremor(s), No weakness and No other Exam Const General: cooperative HENDE Head: normocephalic and atraumatic Neck Other: Previous incision well-healed Resp Effort & Inspection: normal respiratory effort Cardio Rate: regular rate GI Inspection: non-distended Palpation: soft and nontender Skin General: no rashes or lesions noted Neuro General: CN's II-XI intact bilaterally Extrem General: normal to inspection Psych Mental Status: mental status grossly normal Attitude: cooperative Assessment and Plan Assessment and Plan (1) Dysphagia: Status: Acute Comment: SPEAKS WITH LISP SINCE TONGUE SURGERY (2) Malnutrition: Status: Acute (3) Cancer of anterior two-thirds of tongue, dorsal surface: Status: Chronic Comment: 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 Completed adjuvant therapy with weekly Cisplatin and Radiation 12/30/23-02/11/24 (C6 Cisplatin was discontinued on 02/05/2024 because of constant Tinnitus) Comes for follow up. No evidence of disease clinically. Plan Discussed with patient that if he is unable to get approved may need to go through the ER to get the PEG tube placed. I have discussed the above with the patient. I have offered the patient esophagogastroduodenoscopy for PEG placement. I have explained the risks/benefits of the procedure and described the procedure. I have discussed the risks with the patient, including but not limited to: infection, bleeding, perforation of the GI tract requiring emergency surgery, inability to complete the procedure, injury to any internal organs, complications of anesthesia, etc. - the patient understands and agrees to proceed. I have answered all the patient's questions to the patient's satisfaction and the patient has no further questions. Rsahida Hunter M.D. Pager: [phone] [facility] [address] [place] [address], [address] [place] [address] Office: [phone] Coding Level of Care Code Off vis,est,level 3 Diagnoses Dysphagia R13.10 Malnutrition E46 Cancer of anterior two-thirds of tongue, dorsal surface C02.0 10/20/24 1045 <Electronically signed by Rashida Hunter MD> Date Rashida Hunter MD
--- NOTE | 2024-10-21 10:26 | PCM.PRE.AN2 ---
ASA Classification* ASA Classification ASA Classification: 2 Assessment & Plan Anesthesia* Anesthesia Assessment Anesthesia Assessment: Discussed sedation and/or anesthesia options, risks, benefits, and alternatives with patient/parents/legal guardian/POA. Questions invited. The patient/parents/legal guardian/POA seems to understand and agrees to proceed with anesthesia plan. Reviewed the physical assessment, medical history, allergy history and patient home medications list prior to surgery/procedure/anesthetic and documented any changes. Performed airway and anesthesia risk assessments. Anesthesia Type Anesthesia Type: MAC Anesthesia Focused Assessment* Temperature: 98.3 F Pulse Rate: 64 Blood Pressure: 115/82 Respiratory Rate: 16 Pulse Ox: 100 Airway Assessment Mouth opens: >3 cm Mallampati Score: II Focused Labs Anesthesia Preop lab: CBC WBC 4.3 K/mm3 (4.4-11.0) L 07/02/24 15:15 RBC 3.47 M/mm3 (4.6-6.2) L 07/02/24 15:15 Hgb 11.8 g/dL (13.0-16.5) L 07/02/24 15:15 Hct 34.4 % (40-54) L 07/02/24 15:15 Plt Count 178 K/mm3 (150-450) 07/02/24 15:15 CHEMISTRY Potassium 3.7 mmol/L (3.5-5.1) 07/02/24 15:15 Sodium 139 mmol/L (136-145) 07/02/24 15:15 Magnesium 2.1 mg/dL (1.6-2.6) 02/12/24 08:14 Phosphorus 2.1 mg/dL (2.5-4.9) L 02/12/24 08:14 BUN 26 mg/dL (7-18) H 07/02/24 15:15 Creatinine 0.90 mg/dL (0.70-1.30) 07/02/24 15:15 Glucose 94 mg/dL (74-106) 07/02/24 15:15 TSH 19.500 uIU/mL (0.358-3.740) H 09/24/24 14:47 COAG Pre-Assessment Diagnosis/Proposed Procedure Planned Operative Procedure(s): EGD/PEG TUBE Anesthesia History Anesthesia History - housekeeping room inspector: Anesthesia History - housekeeping room inspector Hx Hospitalization Yes: WITH PEG TUBE PLACEMENT 10/20/24 15:08 HAD LUNG INJURY 2023 Any Problems With Anesthesia No 10/20/24 15:08 Cholinesterase deficiency No 10/20/24 15:08 You/Your Family Experience No 10/20/24 15:08 fever (hyperthermia) with Relationship Recent Exposure to Contagious No 10/21/24 09:35 Disease Does patient have nerve No 10/20/24 15:08 stimulator Patient instructed to have device shut off --Does patient have Pacemaker No 10/21/24 09:35 or ICD? When Was Last Pacemaker Check QUESTION #4 FULL TEXT: You/Your Family Experience fever (hyperthermia) with Anesthesia Last Oral Intake Last Oral intake: Last Oral Intake NPO since 00:00 10/21/24 09:35 Meds taken in AM with sips of water? Meds patient instructed to take am of surgery PONV PONV - housekeeping room inspector: PONV - housekeeping room inspector Female No 10/20/24 15:08 HX of Motion Sickness No 10/20/24 15:08 HX of N/V After Surgery No 10/20/24 15:08 Non-Smoker Yes 10/20/24 15:08 Duration of Surgery greater Yes 10/20/24 15:08 than 60 minutes Number of Risk Factors 2 10/20/24 15:08 PONV Score Moderate Risk 10/20/24 15:08 Height & Weight Height & Weight: Anesthesia: Height & Weight Height 5 ft 10 in 10/21/24 09:35 Weight: 60.781 kg 10/21/24 09:35 Body Mass Index (BMI) 19.2 10/21/24 09:35 Respiratory Assessment Respiratory Assessment - housekeeping room inspector: Respiratory Tract Infection Hx - housekeeping room inspector Hx Respiratory Tract Infection No 10/20/24 15:08 STOP Sleep Apnea STOP Sleep Apnea - housekeeping room inspector: STOP Sleep Apnea - housekeeping room inspector Hx Hypertension Yes: CONTROLLED WITH MED 10/20/24 15:08 Hx Sleep Apnea No 10/20/24 15:08 CPAP BIPAP Do you snore loudly (louder Yes 10/20/24 15:08 than talking or can be heard Do you often feel tired/ No 10/20/24 15:08 fatigued/ sleepy during daytime? Has anyone observed you stop No 10/20/24 15:08 breathing during sleep? STOP Results Positive 10/20/24 15:08 QUESTION #5 FULL TEXT : Do you snore loudly (louder than talking or can be heard through closed doors)? Tobacco Use History Tobacco Use History - housekeeping room inspector: Tobacco Use History - housekeeping room inspector Tobacco Use Smoking Status Never smoker 10/20/24 15:08 Hx Tobacco Use No 10/20/24 15:08 Years Smoking Packs Smoked per Day Smoking Cessation Date was within the last 15 years Hx Smoking Cessation Date Hx Smoking Cessation Counseling Hematologic Medial History Hematologic Hx - housekeeping room inspector: Hematologic Medical Hx - treatment specialist Hx of Blood Transfusion No 10/20/24 15:08 Hx of Transfusion in last 3 No 10/20/24 15:08 Months Date of Last Transfusion (if within last 3 months) Ever experience any problems No 10/20/24 15:08 with transfusion(s)? Specify any problems Hx of Preganancy in last 3 N/A 10/20/24 15:08 Months Nurse Filling Out Transfusion DSCHRIBER 10/20/24 15:08 & Questions: Date: 10/20/24 10/20/24 15:08 Time: 15:11 10/20/24 15:08 Patient unable to answer at this time (ie. confused, unrespo /Reproduction History /Reproductive History - housekeeping room inspector: /Reproductive Hx- housekeeping room inspector Hx Now No 10/20/24 15:08 Gestational Age (in weeks): EDC: Hx Hx Para Hx Section SAB No 10/20/24 15:08 PFSH Medical History Thyroid disease Dietary restriction Tinnitus Hypokalemia Dehydration Acid reflux Encounter for education Wears glasses Alcohol use Difficulty chewing Non-smoker Hypertension Neck malignant neoplasm Testicular cancer Neck abscess Dysphagia Squamous cell cancer of tongue Home Medications ?Medication ?Instructions ?Recorded ?Last Taken ?Type amlodipine 5 mg tablet 5 mg PO DAILY blood pressure 11/27/23 10/20/24 History lidocaine-prilocaine 2.5 %-2.5 % 1 applic topical ONCE PRN port 12/12/23 Unknown Rx topical cream access 30 days #30 grams cyclobenzaprine 5 mg tablet 5 mg PO QHS PRN muscle spasm 09/14/24 Unknown History levothyroxine 75 mcg capsule 75 mcg PO QDAY 60 days #60 caps 12/12/24 01/07/25 Rx acetaminophen 325 mg capsule 650 mg PO Q4H PRN pain 10/20/24 Unknown History guaifenesin 1,200 mg tablet, 1,200 mg PO BID PRN congestion 10/20/24 Unknown History extended release 12 hr (Mucinex) Allergy/AdvReac Type Severity Reaction Status Date / Time oxycodone (From Percocet) AdvReac Nausea Verified 10/21/24 09:33 Family History Father Hypertension Diabetes Mother Hypertension Sister Cancer TONGUE Surgical History History of vascular access device H/O tooth extraction History of tonsillectomy History of orchiectomy Hx of glossectomy Social History Smoking Status: Never smoker alcohol intake: current alcohol intake frequency: a few times a month substance use type: does not use Review of Systems (Anesthesia) ROS Narrative System reviewed and no additional complaints, except as documented.
[2024-10-21] MEDS: Cefazolin 2 GM in Syringe IV (11:14)
--- NOTE | 2024-10-21 11:41 | OP.CCLET_ITS ---
10/21/2024 [facility] Re : Upper GI endoscopy procedure for Jef Adams Dear This procedure was performed on Monday, October 21, 2024. My impressions and recommendations are as follows: Impressions : - No specimens collected. Recommendations : - Discharge patient to home. - Resume previous diet. - Continue present medications. - Refer to Back to surgeon at see if they are able to arrange for IR placed PEG tube as patient has an appointment with them next week. My findings are described in the full procedure note, which is enclosed. If I can be of further assistance, please feel free to contact me at Doctor phone number(s): , Work: . Sincerely, MD Rashida Bean MD 10/21/2024 11:40:41 AM This report has been signed electronically.
--- NOTE | 2024-10-21 11:41 | OP.EGD_ITS ---
Patient Name: Jef Adams Procedure Date: 10/21/2024 11:05 AM Date of : 1970 Age: 54 Procedure: Upper GI endoscopy Indications: Malnutrition, Personal history of malignant neoplasm Providers: Rashida Hunter MD Referring MD: Rashida Hunter MD Medicines: Monitored Anesthesia Care Complications: No immediate complications. Procedure: Pre-Anesthesia Assessment: - Prior to the procedure, a History and Physical was performed, and patient medications and allergies were reviewed. The patient's tolerance of previous anesthesia was also reviewed. The risks and benefits of the procedure and the sedation options and risks were discussed with the patient. All questions were answered, and informed consent was obtained. Prior Anticoagulants: The patient has taken no anticoagulant or antiplatelet agents. ASA Grade Assessment: Per anesthesia. After reviewing the risks and benefits, the patient was deemed in satisfactory condition to undergo the procedure. After obtaining informed consent, the endoscope was passed under direct vision. Throughout the procedure, the patient's blood pressure, pulse, and oxygen saturations were monitored continuously. The gastroscope was introduced through the mouth, with the intention of advancing to the duodenum. The scope was advanced to the cricopharyngeal esophagus before the procedure was aborted. Medications were given. The upper GI endoscopy was unusually difficult due to previous surgery. Successful completion of the procedure was aided by {skip} . Scope In: 11:15:33 AM Scope Out: 11:28:03 AM Total Procedure Duration Time 0 hours 12 minutes 30 seconds Findings: Unable to pass scope into the proximal esophagus due to postsurgical changes causing stenosis or fibrosis???scope was meeting resistance and and unable to be advanced. EGD and PEG tube aborted. Impression: - No specimens collected. Recommendation: - Discharge patient to home. - Resume previous diet. - Continue present medications. - Refer to Back to surgeon at see if they are able to arrange for IR placed PEG tube as patient has an appointment with them next week. Procedure Code(s): --- Professional --- 51418, 52, Esophagogastroduodenoscopy, flexible, transoral; diagnostic, including collection of specimen(s) by brushing or washing, when performed (separate procedure) Diagnosis Code(s): --- Professional --- E46, Unspecified protein-calorie malnutrition Z85.9, Personal history of malignant neoplasm, unspecified CPT copyright 2021 [employer]. All rights reserved. The codes documented in this report are preliminary and upon personnel director review may be revised to meet current compliance requirements. MD Rashida Bean MD 10/21/2024 11:40:41 AM This report has been signed electronically. Number of Addenda: 0 Note Initiated On: 10/21/2024 11:05 AM
--- NOTE | 2024-10-21 11:41 | PCM.POST.ANE ---
Anesthesia: Postop Eval I Current Vital Signs Temperature: 98.3 F Pulse Rate: 67 Blood Pressure: 106/73 Respiratory Rate: 14 Pulse Ox: 100 Oxygen Delivery Method: Room Air Assessment Airway patent: Yes Spontaneous unlabored respirations: Yes Mental status: Awake and Calm nausea: No Vomiting: No Anesthesia Complication: No Fluid Hydration Crystalloid volume administer (ml): 30 Total IV fluid infused: 30 Progress Note Anesthesia document: Postop Eval 1 completed: Yes
--- NOTE | 2024-10-21 11:45 | PCM.POST.ANE ---
Anesthesia: Postop Eval I Current Vital Signs Temperature: 98.3 F Pulse Rate: 77 Blood Pressure: 107/69 Respiratory Rate: 18 Pulse Ox: 98 Oxygen Delivery Method: Room Air Assessment Airway patent: Yes Spontaneous unlabored respirations: Yes Mental status: Awake and Calm nausea: No Vomiting: No Anesthesia Complication: No Fluid Hydration Crystalloid volume administer (ml): 200 Total IV fluid infused: 200 Progress Note Anesthesia document: Postop Eval 1 completed: Yes
--- NOTE | 2024-10-21 13:47 | PCM.POSTANE2 ---
Anesthesia Postop Eval I Sum Postop Eval Completion status Anesthesia document: Postop Eval 1 completed: Yes Anesthesia Postop Eval I Summary Anesthesia Postop Eval I Summary: Anesthesia Postop Eval I: Assessment Summary Airway patent Yes 10/21/24 13:47 Spontaneous unlabored Yes 10/21/24 13:47 respirations Mental status Awake,Calm 10/21/24 13:47 nausea No 10/21/24 13:47 Vomiting No 10/21/24 13:47 Anesthesia Postop Eval I: Fluid Summary Crystalloid volume administer 200 10/21/24 13:47 (ml) Colloids volume administered ( ml) Blood Product volume administered (ml) Total IV fluid infused 200 10/21/24 13:47 Anesthesia Postop Eval I: Summary Notes Anesthesia Complication No 10/21/24 13:47 Anesthesia Complication Comment: Post-operative progress note Anesthesia: Postop Eval II Evaluation Mental status: Awake Pain Level: 0 nausea: No Vomiting: No
== END 2024-10-21 12:31 | disposition home or self-care (01) ==
LOC: EN 09:19 → AC 09:21
PROVIDERS: PCP Internal Medicine; Referring Provider Surgery; Visit Provider Surgery
PROC: 0DJ08ZZ Inspection of Upper Intestinal Tract, Via Natural or Artificial Opening Endoscopic (ICD-10-PCS; CPT 43235; principal; 2024-10-21 10:40)
DX: E46 Unspecified protein-calorie malnutrition (principal); R13.10 Dysphagia, unspecified; I10 Essential (primary) hypertension; Z68.1 Body mass index [BMI] 19.9 or less, adult; Z79.899 Other long term (current) drug therapy; Z85.810 Personal history of malignant neoplasm of tongue; Z80.8 Family history of malignant neoplasm of other organs or systems
CPT/HCPCS: 43235; 97803; A4216; J2405

== ENCOUNTER 2024-10-29 13:30 | Outpatient (RCR) | payer OTHER, SELFPAY ==
--- NOTE | 2024-10-29 13:40 | NS ---
10/29/24: RDN called pt to follow-up about enteral nutrition. Pt states he received enteral formula form [employer]. Yesterday he was able to ge 5 or 6 cartons of the [employer] HN formula in via PEG. Informed pt he only needs 4 cartons daily to meet his nutrition needs. Pt is not eating much by mouth d/t swallowing difficulties. No questions for RDN at this time. Lilly Kang RDN, LD
== END 2024-11-13 23:59 ==
LOC: NS 13:30
PROVIDERS: PCP Internal Medicine; Visit Provider Student in an Organized Health Care Education/Training Program
DX: Z71.3 Dietary counseling and surveillance (principal)